=== PATIENT | female | born 1990 | race Caucasian/White ===

== ENCOUNTER 2021-10-25 16:57 | Emergency (ER) | payer OTHER, MEDICAID, SELFPAY ==
[2021-10-25 16:58] VITALS: BP 127/80; PULSE 88; RESP 16; TEMP 36.4; O2SAT 100; BMI 23.9
--- NOTE | 2021-10-25 17:18 | EX.ED.VIS.HA ---
HPI History of Present Illness Chief Complaint: Headache Informant: patient Onset/Context/Timing Onset: Weeks Context: Gradual Current Severity: Severe Maximum Severity: Severe Narrative Narrative: Patient present secondary to headache. She states headache has been ongoing for the past 3 weeks but has worsened recently. She rates her pain as a 10 out of 10. She does report some nausea today. She states the headache seems to be located around the left evangelical area. She denies recent head injury. No URI symptoms. Patient does report a history of a head bleed. She states that when she was in high school she had multiple severe headaches and would have brief syncopal episodes. After multiple head scans and different imaging modality studies she states they were able to see a small area of bleed on an angiography study in [place]. She was transferred to [place]. She never had surgery or coiling. She states the doctor there does put her on some medication which seem to help her headaches. [facility] Medical History (Updated 10/25/21 @ 19:[address] Blanca Alejandre MD) Brain bleed Home Medications mecobalamin (vitamin B12) 1,000 mcg SUBLINGUAL DAILY 04/28/16 [History Last Taken Unknown] diphenhydramine HCl 50 mg PO Q6H PRN #10 cap 10/25/21 [Rx Last Taken Unknown] ketorolac 10 mg PO Q6H PRN 3 Days #10 tab 10/25/21 [Rx Last Taken Unknown] metoclopramide HCl [Reglan] 10 mg PO Q6H PRN #10 tab 10/25/21 [Rx Last Taken Unknown] Allergy/AdvReac Type Severity Reaction Status Date / Time Iodinated Contrast Media Allergy Shortness Verified 10/25/21 16:59 [CONTRASTS] of breath Surgical History H/O inguinal hernia repair Social History Smoking Status: Current every day smoker tobacco type: cigarettes ROS ROS ED Constitutional Constitutional ED: Denies chills or fever(s) Eyes Eyes: Denies change in vision ENT ENT ED: Denies sore throat Cardiovascular Cardiovascular: Denies chest pain Respiratory/Chest Respiratory/Chest: Denies cough or dyspnea Gastrointestinal Gastrointestinal: Reports nausea and vomiting; Denies abdominal pain or diarrhea Genitourinary Genitourinary ED: Denies dysuria Musculoskeletal Musculoskeletal: Denies back pain Integumentary Denies rash Neurologic Neurologic: Reports headache(s); Denies weakness Psychiatric Psychiatric: Reports anxiety; Denies depression Allergic/Immunologic Allergic/Immunologic ED: Denies urticaria EXAM Physical Exam Const Vital Signs: 10/25/21 16:58 10/25/21 19:21 Temperature 97.6 F L Temperature Source Temporal Pulse Rate 88 Respiratory Rate 16 16 Blood Pressure 127/80 H Blood Pressure Mean 95 Pulse Ox 100 Oxygen Delivery Method Room Air Positive well nourished and well developed General Appearance ED: well developed HEENT Reports moist mucous membranes Eyes PERRL and EOMs intact bilaterally Neck supple and no meningeal signs Resp normal respiratory effort and clear to auscultation bilaterally Cardio regular rate and regular rhythm GI non-tender Palpation: soft Extremity normal to inspection Neuro oriented x3 and no sensory deficits noted Sensorium / Orientation: awake and alert Motor Exam: strength 5/5 throughout Psych mental status grossly normal Skin Lesions: no lesions Rashes: no rashes MDM MDM MDM Narrative Medical decision making narrative: Patient was given Toradol, Reglan, Benadryl, IV fluids. She was given Solu-Medrol as pretreatment for IV contrast allergy. Radiography Diagnostic Testing: Clinical Impression(s) from Imaging Studies Head CTA 10/25/21 17:32 IMPRESSION: Normal unenhanced and enhanced CT scan of the brain. Electronically Signed: Dylan De La Fuente MD at 19:24 EDT , Treatment and Re-Evaluation Narrative: Repeat evaluation headache is improving. CTA of the head is unremarkable. Test results discussed with the patient. I will write her prescription of Toradol, Reglan, Benadryl that she can use at home if needed. I will also refer her to Dr. Cardoso to establish a neurologist locally for repeat exam and further testing if needed. Return instructions are provided. Discharge Plan Triage Chief Complaint: Headache ED Provider: Blanca Alejandre Dx/Rx/DC Orders Clinical Impression: Headache Instructions: ED Headache Unspecified Prescriptions: New ketorolac 10 mg tablet 10 mg PO Q6H PRN (Reason: pain) 3 Days Qty: 10 RF: 0 metoclopramide HCl [Reglan] 10 mg tablet 10 mg PO Q6H PRN (Reason: headache) Qty: 10 RF: 0 diphenhydramine HCl 50 mg capsule 50 mg PO Q6H PRN (Reason: headache) Qty: 10 RF: 0 No Action mecobalamin (vitamin B12) 1,000 MCG tablet,disintegrating 1,000 mcg sublingual DAILY RF: 0 Primary Care Provider: Care Physician,No Primary Referrals: Rajesh Cardoso MD [STAFF PHYSICIAN] - As soon as possible Care Physician,No Primary [Primary Care Provider] - Disposition Disposition: Home, Self Care
[2021-10-25] MEDS: 0.9% Normal Saline 1,000 ML 1000 ML IV (17:23)
[2021-10-25] MEDS: Metoclopramide 10 MG/2 ML Vial IV (17:24)
[2021-10-25] MEDS: DiphenhydrAMINE 50 MG/ML Syringe 25 MG IV (17:24)
[2021-10-25] MEDS: MethylPREDNISolone 125 MG/2 ML Vial 60 MG IV (17:24)
[2021-10-25] MEDS: Ketorolac 30 MG/ML Syringe IV (17:24)
--- NOTE | 2021-10-25 17:32 | CT_ITS ---
STUDY: CT BRAIN WITH AND WITHOUT CONTRAST REASON FOR EXAM: Female, 30 years old. headache -- premedicated at 17:30 RADIATION DOSAGE (If Supplied By Facility): CTDIvol = ( 24.73 ) mGy, DLP = ( 1240.45 ) mGycm TECHNIQUE: Transaxial CT imaging of the brain was performed pre and post contrast administration. The examination was performed with intravenous administration of IV 75mL Isovue-370. Individualized dose optimization techniques were used for this CT. COMPARISON: 04/29/2016 FINDINGS: Normal soft tissue structures. Normal calvarium. Normal size ventricles and extra-axial spaces for the patient''s age. Normal white matter tracts of the cerebral hemispheres. Normal basal ganglia and thalami. Normal brainstem. Normal cerebellum. There is no intracranial hemorrhage. There are no findings of an acute ischemic infarction. Normal visualized paranasal sinuses. CT/CTA Head W/WO Contrast IMPRESSION: Normal unenhanced and enhanced CT scan of the brain. Electronically Signed: Dylan De La Fuente MD at 19:24 EDT ,
[2021-10-25 19:21] VITALS: RESP 16
== END 2021-10-25 19:47 | disposition home or self-care (01) ==
PROVIDERS: Emergency Provider Emergency Medicine; Visit Provider Emergency Medicine
DX: R51.9 Headache, unspecified (principal); F17.210 Nicotine dependence, cigarettes, uncomplicated
CPT/HCPCS: 70496; 96361; 96374; 96375; 99283; J7030; Q9967

== ENCOUNTER → 2022-03-24 | Outpatient (CLI) | payer OTHER, MEDICAID, SELFPAY ==
[2022-03-24 11:53] LABS: HIV - WCH Non-Reactive (Nonreactive); Hepatitis B Surface Antibody Reactive; Syphilis Antibodies Non-reactive
[2022-03-25 05:07] LABS: HEPATITIS B SURFACE AG Negative (Negative); Hep C Antibodies <0.1 s/co ratio (0.0-0.9); Hepatitis A IgM Antibody Negative (Negative); Hepatitis B Core AB IgM Negative (Negative)
[2022-03-25 22:07] LABS: Chlamydia By Nucleic Acid AMP Negative (Negative)
[2022-03-26 15:58] LABS: Hepatitis A AB, Total Negative (Negative)
[2022-03-26 15:58] LABS: Gonococcus By Nucleic Acid AMP Negative (Negative)
== END | disposition home or self-care (01) ==
LOC: WOBLAB 10:30
PROVIDERS: Visit Provider Student in an Organized Health Care Education/Training Program
DX: Z11.3 Encounter for screening for infections with a predominantly sexual mode of transmission (principal)
CPT/HCPCS: 36415; 80074; 86703; 86706; 86708; 86780; 87491; 87591

== ENCOUNTER 2023-02-13 19:45 | Emergency (ER) | payer BC, MEDICAID, SELFPAY ==
[2023-02-13 19:46] VITALS: BP 123/88; PULSE 80; RESP 16; TEMP 36.7; O2SAT 98; BMI 23.3
--- NOTE | 2023-02-13 20:01 | EDS_ITS ---
HPI History of Present Illness Chief Complaint: Lower Extremity Injury Narrative Narrative: Stepped on a metal object which got embedded in her foot. It did not go through her shoe. Her boyfriend pulled it out. No other injuries. Tetanus is not up-to-date. [facility] Medical History (Updated 02/13/23 @ 20:[address] Jose Francisco Mccall MD) Brain bleed Home Medications mecobalamin (vitamin B12) 1,000 mcg disintegrating tablet,sublingual 1,000 mcg sublingual DAILY 04/28/16 [History Last Taken Unknown] diphenhydramine HCl 50 mg capsule 50 mg PO Q6H PRN headache #10 caps 10/25/21 [Rx Last Taken Unknown] ketorolac 10 mg tablet 10 mg PO Q6H PRN pain 3 days #10 tabs 10/25/21 [Rx Last Taken Unknown] metoclopramide HCl 10 mg tablet (Reglan) 10 mg PO Q6H PRN headache #10 tabs 10/25/21 [Rx Last Taken Unknown] ondansetron HCl 8 mg tablet 8 mg PO Q12H PRN nausea and vomiting #10 tabs 05/26/22 [Rx Last Taken Unknown] Allergy/AdvReac Type Severity Reaction Status Date / Time Iodinated Contrast Media Allergy Shortness Verified 02/13/23 19:49 [CONTRASTS] of breath Latex, Natural Rubber Allergy Rash Verified 02/13/23 19:49 Surgical History H/O inguinal hernia repair Social History Smoking Status: Current some day smoker tobacco type: cigarettes ROS ROS ED ROS Narrative Past medical history: none Medications: Reviewed Social history: Noncontributory Review of systems: Musculoskeletal: As in HPI Skin: Puncture wound dorsum of the foot Neurological: No weakness or paresthesias Hematologic: No easy bleeding or easy bruising EXAM Physical Exam Narrative Exam Narrative: Physical exam General: Patient does not appear in significant distress . Head: Normocephalic, Atraumatic Neck: No C-spine tenderness Cardiovascular: Normal distal pulses Back: Nontender, Normal Inspection. Extremities: There is a puncture wound dorsum of the foot, no obvious bony de formities. Skin: As above Neurological: Normal strength and sensation Const Vital Signs: 02/13/23 19:46 Temperature 98.1 F Temperature Source Temporal Pulse Rate 80 Respiratory Rate 16 Blood Pressure 123/88 H Blood Pressure Mean 99 Pulse Ox 98 Oxygen Delivery Method Room Air MDM MDM MDM Narrative Medical decision making narrative: Patient has a gradual onset of chronic recurrent cephalgia. There is no neurological signs and this is gradual onset therefore I am not worried about subarachnoid hemorrhage, I am not worried about any mass, I am not worried about meningitis. I do not believe a CT or CTA is needed I do believe an LP is needed. I do not believe blood work is needed she is given a migraine cocktail after which I reevaluated admission significantly improved and wants to be discharged. I will discharge her in the care of her . Discharge Plan Triage Chief Complaint: Lower Extremity Injury Other Complaint: Foreign Body ED Provider: Jose Francisco Mccall Dx/Rx/DC Orders Clinical Impression: Headache Instructions: Understanding Headache Pain Prescriptions: No Action ondansetron HCl 8 mg tablet 8 mg PO Q12H PRN (Reason: nausea and vomiting) Qty: 10 0RF mecobalamin (vitamin B12) 1,000 MCG tablet,disintegrating 1,000 mcg sublingual DAILY ketorolac 10 mg tablet 10 mg PO Q6H PRN (Reason: pain) 3 Days Qty: 10 0RF metoclopramide HCl [Reglan] 10 mg tablet 10 mg PO Q6H PRN (Reason: headache) Qty: 10 0RF diphenhydramine HCl 50 mg capsule 50 mg PO Q6H PRN (Reason: headache) Qty: 10 0RF Primary Care Provider: ANTONIO RIOS Referrals: [facility] Doctor,Out of [Non-Staff] - Disposition Disposition: Home, Self Care
[2023-02-13] MEDS: Oxycodone/Apap 5/325 Tablet PO (20:10)
[2023-02-13] MEDS: Diphth,Pertuss(Acell),Tet Vac 0.5 ML Vial IM (20:11)
[2023-02-13] MEDS: Cefazolin 1 GM/5 ML Vial IM (20:36)
--- NOTE | 2023-02-13 20:42 | RAD_ITS ---
INDICATION: trauma EXAMINATION/TECHNIQUE: X-RAY - RIGHT XR Foot Min 3 Views COMPARISON: None. FINDINGS: 3 views of the right foot. BONES: Normal anatomic alignment without evidence of fracture or subluxation. No concerning bony lesion or abnormal sclerosis to suggest lesion. Type II os naviculare. JOINTS: No significant degenerative change. SOFT TISSUES: Punctate 1 mm opacity overlying the medial base of the right little toe. Soft tissue swelling of the forefoot dorsum. RAD/Foot min 3 Views IMPRESSION: Punctate 1 mm opacity overlying the medial base of the right little toe, which may represent overlying artifact versus retained foreign body. Correlate with physical examination. No acute osseous abnormality of the right foot. Type II os naviculare. Electronically Signed: Hoang John MD at 22:06 EDT ,
== END 2023-02-13 21:44 | disposition home or self-care (01) ==
PROVIDERS: Emergency Provider Emergency Medicine; Visit Provider Emergency Medicine
DX: R51.9 Headache, unspecified (principal); F17.210 Nicotine dependence, cigarettes, uncomplicated
CPT/HCPCS: 73630; 90715; 96372; 99282

== ENCOUNTER 2023-08-25 22:33 | Emergency (ER) | payer BC, MEDICAID, SELFPAY ==
[2023-08-25 22:34] VITALS: BP 144/99; PULSE 91; RESP 16; TEMP 36.2; O2SAT 100; BMI 26.8
[2023-08-26] MEDS: Ketorolac 30 MG/ML Syringe IV (00:06)
[2023-08-26] MEDS: Orphenadrine 60 MG/2 ML Ampul IV (00:06)
[2023-08-26] MEDS: 0.9% Normal Saline (1000mL) 1,000 ML 999 ML IV (00:07)
[2023-08-26 00:26] LABS: Anion Gap 6 (5-15); BUN 9 mg/dL (7-18); BUN/Creat Ratio 11.2 RATIO (10-20); Calcium,Total 8.7 mg/dL (8.5-10.1); Chloride 107 mmol/L (98-107); EST Glomerular Filtration Rate 86 mL/min (>60); Est Glom Filt Rate - Afr Amer 104 mL/min (>60); Estimated Creatinine Clearance 92.18 ml/min; Glucose 104 mg/dL (74-106); Magnesium 2.2 mg/dL (1.6-2.6); Sodium Level 139 mmol/L (136-145)
[2023-08-26 00:31] LABS: Absolute Lymphocyte Count 2.07 X10^3/uL (0.83-4.51); Absolute Neutrophil Count 10.3 X10^3/uL (2.0-7.7); Basophil# 0.06 X10^3/uL; Basophil% 0.4 % (0-1); Eosinophil# 0.21 X10^3/uL; Eosinophils% 1.6 % (0-5); Hematocrit 42.4 % (37-47); Hemoglobin 14.7 g/dL (12.0-15.0); Lymphocyte # 2.07 X10^3/ul (0.83-4.51); Lymphocyte % 15.3 % (19-41); Mean Corp Hgb Conc 34.7 g/dL (32-36); Mean Corpuscular Hgb 29.9 pg (27.0-32.0); Mean Corpuscular Volume 86.2 fL (81-99); Mean Platelet Vol. 10.3 fl (6.2-12.0); Monocyte# 0.75 X10^3/uL; Monocyte% 5.5 % (0-10); NRBC Flagged by Analyzer 0 % (0-5); Neutrophil # 10.29 X10^3/uL (2.7-7.7); Neutrophil % 76.1 % (47-70); Platelet Count 160 K/mm3 (150-450); RBC Distribution Width SD 43.3 fl (35.1-43.9); Red Blood Count 4.92 M/mm3 (4.2-5.4); White Blood Count 13.5 K/mm3 (4.4-11.0)
[2023-08-26 00:38] VITALS: BP 139/74; PULSE 88; RESP 16; O2SAT 97
--- NOTE | 2023-08-26 01:24 | EDS_ITS ---
HPI History of Present Illness Chief Complaint: General Illness Informant: patient and friend Narrative Narrative: Patient is a 32-year-old female with past medical history of remote brain bleed. She states that she was sick with congestion and drainage and fatigue for approximately 1 to 2 weeks and then was also exposed to influenza B at work and then developed bouts of fever associated with increased fatigue nausea vomiting and diarrhea. She states she has she had a call off work this evening secondary to her symptoms and therefore she comes to the hospital for evaluation [facility] Medical History (Updated 08/26/23 @ 01:[address] Etienne Kaiser, DO) Brain bleed Home Medications mecobalamin (vitamin B12) 1,000 mcg disintegrating tablet,sublingual 1,000 mcg sublingual DAILY 04/28/16 [History Last Taken Unknown] diphenhydramine HCl 50 mg capsule 50 mg PO Q6H PRN headache #10 caps 10/25/21 [Rx Last Taken Unknown] ketorolac 10 mg tablet 10 mg PO Q6H PRN pain 3 days #10 tabs 10/25/21 [Rx Last Taken Unknown] metoclopramide HCl 10 mg tablet (Reglan) 10 mg PO Q6H PRN headache #10 tabs 10/25/21 [Rx Last Taken Unknown] ondansetron HCl 8 mg tablet 8 mg PO Q12H PRN nausea and vomiting #10 tabs 05/26/22 [Rx Last Taken Unknown] cephalexin 500 mg capsule 500 mg PO Q6 #40 CAPSULES 02/13/23 [Rx Last Taken Unknown] hydrocodone-acetaminophen 5-325mg 5mg-325mg 1 tab PO Q4H PRN PRN Pain 3 days #10 TABLETS 02/13/23 [Rx Last Taken Unknown] Allergy/AdvReac Type Severity Reaction Status Date / Time Iodinated Contrast Media Allergy Shortness Verified 08/25/23 22:36 [CONTRASTS] of breath Latex, Natural Rubber Allergy Rash Verified 08/25/23 22:36 Surgical History H/O inguinal hernia repair Social History Smoking Status: Current some day smoker tobacco type: cigarettes ROS ROS ED Constitutional Constitutional ED: Reports chills, fever(s) and subjective ENT ENT ED: Reports rhinorrhea; Denies sore throat Cardiovascular Cardiovascular: Denies chest pain Respiratory/Chest Respiratory/Chest: Denies cough or dyspnea Gastrointestinal Gastrointestinal: Reports abdominal pain, diarrhea, nausea and vomiting Genitourinary Genitourinary ED: Denies dysuria Musculoskeletal Musculoskeletal: Reports myalgias Integumentary Denies rash Neurologic Neurologic: Reports headache(s) Hematologic/Lymphatic Hematologic/Lymphatic: Denies easy bleeding or easy bruising EXAM Physical Exam Const Vital Signs: 08/25/23 22:34 Temperature 97.2 F L Temperature Source Temporal Pulse Rate 91 Respiratory Rate 16 Blood Pressure 144/99 H Blood Pressure Mean 114 Pulse Ox 100 Oxygen Delivery Method Room Air Positive well nourished and well developed General Appearance ED: well developed; Negative for pallor HEENT HEENT Narrative: Mucous membranes are slightly dry and tacky No tongue or lip swelling no oral lesions no airway edema or compromise No secondary changes in the posterior pharynx to suggest infection Eyes PERRL and EOMs intact bilaterally General Eye ED: Negative for scleral icterus Neck supple Neck Narrative: No nuchal rigidity or meningeal signs Resp normal respiratory effort and clear to auscultation bilaterally Resp Narrative: No nasal flaring retractions tachypnea or accessory muscle use Cardio regular rate and regular rhythm Rate: other Other Details: Heart is regular rate and rhythm without murmurs rubs or gallop Radial and carotid pulses are equal and symmetric GI non-distended GI Narrative: Abdomen is soft and nondistended with normal active bowel sounds. There is mild pain on palpation in the left lower quadrant without voluntary guarding or rigidity or pulsatile mass Auscultation: normoactive bowel sounds Palpation: soft Back/Spine no CVA tenderness Extremity normal to inspection Extremity Narrative: No asymmetric edema no pitting edema negative Homans' sign bilaterally Neuro oriented x3, CN's II-XII intact bilaterally and no sensory deficits noted Sensorium / Orientation: alert Motor Exam: strength 5/5 throughout Psych mental status grossly normal Skin no rashes or lesions noted and no wounds Skin Narrative: Skin turgor is slightly increased General Skin Exam: Negative for jaundice or pallor MDM MDM MDM Narrative Medical decision making narrative: Patient arrived to the ER slightly hypertensive otherwise with stable vital. Constellation of symptoms is most consistent with recurrent viral infection such as COVID versus influenza versus RSV. Her physical exam shows changes concerning for dehydration as well which could potentially cause acute kidney injury or severe electrolyte abnormality. Therefore basic labs and a viral swab were obtained. Labs showed normal kidney function and no clinically significant derangement to her electrolytes. Patient's white count is elevated at 13.5 which could correlate to inflammatory process from viral infection. As she does have pain in the lower abdomen even though it is minimal in nature we discussed CT scan to check for potential pathology such as colitis versus diverticulitis versus kidney stone. Patient states she feels better after hydration and does not want any imaging obtained. Therefore at this time patimaryellen nt's labs show no signs of LINDA or severe electrolyte abnormality her viral swab is negative and vital signs are stable. Therefore despite the bump to her white count she does not want any type of imaging to further assess potential cause of her symptoms and as her abdomen is soft and nonsurgical the white count is most likely inflammatory and viral in nature. Patient will be discharged home at this time as she does not want any further workup and advised to return to symptoms fail to improve or worsen History & Record Review Discussion w/independent historian: Patient and Friend Lab Data Labs: Laboratory Results - last 24 hr 08/25/23 23:58 WBC 13.5 H RBC 4.92 Hgb 14.7 Hct 42.4 MCV 86.2 MCH 29.9 MCHC 34.7 RDW Std Deviation 43.3 RDW Coeff of Artur 14.0 Plt Count 160 MPV 10.3 Immature Gran % (Auto) 1.100 H Neut % (Auto) 76.1 H Lymph % (Auto) 15.3 L Hunt % (Auto) 5.5 Eos % (Auto) 1.6 Baso % (Auto) 0.4 Absolute Neuts (auto) 10.3 H Absolute Lymphs (auto) 2.07 Nucleated RBC % 0 Sodium 139 Potassium 4.0 Chloride 107 Carbon Dioxide 26.0 Anion Gap 6 BUN 9 Creatinine 0.80 Estim Creat Clear Calc 92.18 Est GFR (MDRD) Af Amer 104 Est GFR (MDRD) Non-Af 86 BUN/Creatinine Ratio 11.2 Glucose 104 Calcium 8.7 Magnesium 2.2 Discharge Plan Triage Chief Complaint: General Illness ED Provider: Etienne Kaiser Dx/Rx/DC Orders Clinical Impression: Viral syndrome, Mild dehydration Instructions: ED Viral Syndrome (Adult) Prescriptions: No Action ondansetron HCl 8 mg tablet 8 mg PO Q12H PRN (Reason: nausea and vomiting) Qty: 10 0RF mecobalamin (vitamin B12) 1,000 MCG tablet,disintegrating 1,000 mcg sublingual DAILY ketorolac 10 mg tablet 10 mg PO Q6H PRN (Reason: pain) 3 Days Qty: 10 0RF metoclopramide HCl [Reglan] 10 mg tablet 10 mg PO Q6H PRN (Reason: headache) Qty: 10 0RF diphenhydramine HCl 50 mg capsule 50 mg PO Q6H PRN (Reason: headache) Qty: 10 0RF hydrocodone-acetaminophen 5-325 mg tablet 1 tab PO Q4H PRN PRN (Reason: Pain) 3 Days Qty: 10 0RF cephalexin 500 mg capsule 500 mg PO Q6 Qty: 40 0RF Stand Alone Forms: ED Work / School Excuse Primary Care Provider: Care Physician,No Primary Referrals: Jose Francisco Hawthorne MD [Med Staff - Active Staff] - Care Physician,No Primary [Primary Care Provider] - Activity Restrictions/Additional Instructions: Please keep yourself well-hydrated and take 600 mg / 3 pills of [id number] ibuprofen 2-3 times a day for the next 3 to 5 days to help control muscle aches. Return to the ER should you have any further concerns or worsening of symptoms Disposition Disposition: Home, Self Care
[2023-08-26 01:31] VITALS: BP 134/75; PULSE 82; RESP 16; TEMP 36.6; O2SAT 99
== END 2023-08-26 01:33 | disposition home or self-care (01) ==
PROVIDERS: Emergency Provider Emergency Medicine; Visit Provider Emergency Medicine
DX: B34.9 Viral infection, unspecified (principal); E86.0 Dehydration; F17.210 Nicotine dependence, cigarettes, uncomplicated
CPT/HCPCS: 80048; 83735; 85025; 87631; 96374; 96375; 99283; J7030; A4216

== ENCOUNTER 2024-03-10 00:49 | Emergency (ER) | payer BC, SELFPAY ==
[2024-03-10 00:51] VITALS: BP 133/99; PULSE 111; RESP 16; TEMP 36.4; O2SAT 98; BMI 26.1
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
--- NOTE | 2024-03-10 01:26 | ED.RN ---
PER DR. KABA NO SITTER NEEDED
[2024-03-10 01:51] VITALS: PULSE 105; RESP 17; O2SAT 99
[2024-03-10 01:58] LABS: Absolute Lymphocyte Count 1.32 X10^3/uL (0.83-4.51); Absolute Neutrophil Count 4.3 X10^3/uL (2.0-7.7); Basophil# 0.06 X10^3/uL; Eosinophil# 0.03 X10^3/uL; Eosinophils% 0.5 % (0-5); Hematocrit 42.6 % (37-47); Lymphocyte # 1.32 X10^3/ul (0.83-4.51); Lymphocyte % 21.6 % (19-41); Mean Corp Hgb Conc 32.9 g/dL (32-36); Mean Corpuscular Hgb 28.9 pg (27.0-32.0); Mean Platelet Vol. 9.8 fl (6.2-12.0); Monocyte# 0.42 X10^3/uL; Monocyte% 6.9 % (0-10); NRBC Flagged by Analyzer 0 % (0-5); Neutrophil # 4.26 X10^3/uL (2.7-7.7); Neutrophil % 69.8 % (47-70); Platelet Count 150 K/mm3 (150-450); Red Blood Count 4.84 M/mm3 (4.2-5.4); White Blood Count 6.1 K/mm3 (4.4-11.0)
[2024-03-10 02:00] VITALS: PULSE 105; RESP 16; O2SAT 99
[2024-03-10 02:09] LABS: Internal QC Validated? YES +Cl - CLEAR BKGD; Pregnancy, Serum, hCG Quali. NEGATIVE Negative
[2024-03-10 02:13] LABS: Anion Gap 6 (5-15); BUN 13 mg/dL (7-18); BUN/Creat Ratio 14.6 RATIO (10-20); Calcium,Total 9.4 mg/dL (8.5-10.1); Chloride 112 mmol/L (98-107); Creatinine, Serum 0.89 mg/dL (0.55-1.02); EST Glomerular Filtration Rate 77 mL/min (>60); Est Glom Filt Rate - Afr Amer 93 mL/min (>60); Estimated Creatinine Clearance 81.06 ml/min; Glucose 101 mg/dL (74-106); Potassium 4.1 mmol/L (3.5-5.1); Sodium Level 142 mmol/L (136-145)
[2024-03-10 02:16] LABS: Amphetamine Urine VISTA NEGATIVE (<1000 ng/mL); Barbiturate Urine VISTA NEGATIVE (< 200 ng/mL); Benzodiazepine Urine VISTA NEGATIVE (< 200 ng/mL); Cocaine Urine VISTA NEGATIVE (< 300 ng/mL); Ecstacy Urine VISTA NEGATIVE (< 500 ng/mL); Methadone Urine VISTA NEGATIVE (< 300 ng/mL); PCP Urine VISTA NEGATIVE (< 25 ng/mL); THC Urine VISTA NEGATIVE (< 50 ng/mL); Vista UDS pH Range 5
--- NOTE | 2024-03-10 06:00 | ED.RN ---
Pt is found wandering in hallways in triage while staff were in with another patient. This nurse escorts pt back to room. Pt states she got lost. Per security pt's boyfriend was outside and pt appeared to be looking out the doors. This nurse removed pts shoes, keys and wallet from room that boyfriend had brought in after belongings and rules were already explained to pt. Pt then asks for work note from Dr. Palencia. This nurse explained work note would not be given until it is determined if pt was getting placed or if she would be going home. Pt states she cannot be placed because those places are horrible and I don't belong there. Explained process again to pt, that she would be seen by social work after she is at a legal limit for ETOH and then it would be determined if she was to be placed. Boyfriend states you are upsetting her, can we talk about this later. This nurse responded yes we can, I am just trying to set expectations so everyone is all on the same page. Pt asks for this nurse's name, name given.
[2024-03-10 10:56] VITALS: BP 117/86; PULSE 90; RESP 16; TEMP 36.3; O2SAT 97
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
[2024-03-10 18:00] VITALS: BP 129/87; PULSE 90; RESP 18; O2SAT 96
--- NOTE | 2024-03-10 18:40 | CM.ED ---
Social work Referrals faxed to both [facility] (fax: [phone]) and [facility] (fax: [phone]). Shae Peters REJECT OPENER, THERMOFORMING OPERATOR
--- NOTE | 2024-03-10 18:55 | CM.ED ---
Social work Patient has been accepted at [facility]. SW spoke with Gerri at [facility] ( ). Call report to [facility] unit ([phone]). The attending physician is Dr. Vásquez. Updated nursing. Updated physician to acceptance. The completed pink slip was also faxed to [facility], at their request. Verified visiting hours and that patient could bring her own clothes. Updated family as well. Shae Peters, HEEL SLICKER, BLUE PRINT CONTROL CLERK
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
--- NOTE | 2024-03-10 20:32 | ED.RN ---
Pt mother to nurse's station asking for pillow. Reviewed safety policies with mother. Informed mother that these precautions have also been reviewed with her daughter several times this morning by myself and throughout the day. Mother states she was unaware. Mother states she is my daughter and I just want her taken care of. Validated feelings with mother, and reminded that policies are in place for patient and staff safety. Mother then returns to room.
--- NOTE | 2024-03-10 21:47 | ED.RN ---
The patients mother pulled this RN aside and requested that Pinky Barry RN not be back in the room due to her being disrespectful to my daughter this morning. This RN stated she is my charge nurse so she has authority to know information but I will request it for you. Earlier tonight the mother requested that the patient have scrubs and a bra. The patient stated Dr Brumfield said I could have my bra and scrubs and so did the clinical social work therapist. This RN stated you are under suicidal precautions, you cannot have a bra but Dr Brumfield stated you can have scrubs and my sound truck operator Xiomara stated scrubs are fine as well. This RN provided paper scrubs. The pt did not put scrubs on yet. The patient also stated she did not want men in the room and this RN stated We will try our best to handle that however we do have male staff on [facility] and we will try to handle that appropriately. The patients s/o brought in clothes and this RN went to remove the items from the room and the pt stated I was told I can keep these items. This RN stated you can bring them to the facility with you but they cannot stay in this room. The pt stated The clinical social work therapist told me I can keep them. This RN explained how it is not safe for the patient to have items with drawstrings or other items like hairspray that can be ingested. The pt was agreeable and the s/o did remove drawstrings so she can have the item at the facility. This RN also wrote down phone numbers for the patient and placed them in her bag (with pt permission) so she can have numbers when she goes to the psych facility.
[2024-03-11 02:00] VITALS: BP 113/78; PULSE 65; RESP 18; TEMP 36.8; O2SAT 98
--- NOTE | 2024-03-11 03:03 | ED.RN ---
The pt requested our Dr write her a note for work. She has been told by Dr Palencia last night and Dr Ladi astorga that she will get a note when she is at her psych facility.
[2024-03-11 03:19] VITALS: BP 113/78; PULSE 65; RESP 18; TEMP 36.8; O2SAT 98
--- NOTE | 2024-03-11 03:20 | ED.RN ---
This RN called report to the facility.
== END 2024-03-11 07:30 ==
PROVIDERS: Emergency Provider Emergency Medicine; Visit Provider Emergency Medicine
DX: R45.851 Suicidal ideations (principal); F10.129 Alcohol abuse with intoxication, unspecified; F32.A Depression, unspecified; Z87.891 Personal history of nicotine dependence
CPT/HCPCS: 80048; 80307; 82077; 84703; 85025; 99285; A4216

== ENCOUNTER → 2024-11-29 | Outpatient (CLI) | payer OTHER, SELFPAY ==
--- NOTE | 2024-11-29 15:34 | US_ITS ---
PROCEDURE: TRANSVAGINAL NON- 11/29/2024 REASON FOR EXAM: PELVIC AND PERINEAL PAIN TECHNIQUE: TRANSVAGINAL NON- COMPARISON: None FINDINGS: LMP: November 07, 2024. Measurements: Uterus: 9.6 cm x 5.6 cm x 4.3 with a volume of 122.08 mL Endometrial Thickness: 10.2 mm. It is hyperechoic. Right Ovary: 2.8 cm x 2.4 cm x 1.7 cm with a volume of 5.82 mL. Left Ovary: 4.1 cm x 2.2 cm x 2.1 cm with a volume of 9.73 mL. Uterus: Normal size, myometrial echotexture, and contour. Endometrium: Measures 10.2 mm. It is hyperechoic. Right ovary: Normal size and echotexture. Left ovary: There is a 2.9 cm 1.8 cm 1.5 cm complex cyst in the left ovary. Follow-up recommended. Other: No large pelvic mass identified. US/Transvaginal Non- IMPRESSION: 2.9 cm 1.8 cm 1.5 cm complex cyst in the left ovary. Reading Location: [place] [address]
== END | disposition home or self-care (01) ==
LOC: US 15:32
PROVIDERS: PCP Family Medicine; Referring Provider Nurse Practitioner Family; Visit Provider Nurse Practitioner Family
DX: R10.2 Pelvic and perineal pain (principal)
CPT/HCPCS: 76830

== ENCOUNTER → 2024-12-01 | Outpatient (CLI) | payer OTHER, SELFPAY ==
--- NOTE | 2024-12-01 15:33 | RAD_ITS ---
PROCEDURE: ACUTE ABDOMEN INC CHEST 12/01/2024 REASON FOR EXAM: ABD PAIN, EVAL CONSTIPATION TECHNIQUE: ACUTE ABDOMEN INC CHEST COMPARISON: None. FINDINGS: Lungs/Pleura: Clear. Heart/Mediastinum: Normal in size. Bones/Soft tissues: Unremarkable. Abdomen: Nonobstructive gas pattern. No free air. Moderate burden of stool within the colon particularly within the rectal vault which may reflect constipation. RAD/Acute Abdomen Inc Chest IMPRESSION: Moderate stool in the colon may reflect constipation. Reading Location: [id number]
[2024-12-01 17:52] LABS: Hematocrit 36.5 % (37-47); Hemoglobin 12.3 g/dL (12.0-15.0); Immature Granulocytes Count 0.010 X10^3/uL (0.0-0.0); Mean Corp Hgb Conc 33.7 g/dL (32-36); Mean Corpuscular Volume 90.1 fL (81-99); Mean Platelet Vol. 10.1 fl (6.2-12.0); NRBC Flagged by Analyzer 0 % (0-5); Platelet Count 133 K/mm3 (150-450); RBC Distribution Width CV 12.8 % (11.6-14.6); RBC Distribution Width SD 42.3 fl (35.1-43.9); Red Blood Count 4.05 M/mm3 (4.2-5.4); White Blood Count 4.8 K/mm3 (4.4-11.0)
[2024-12-01 18:05] LABS: AST(SGOT) 16 U/L (<=31); Alanine Aminotransfer ALT/SGPT 8 U/L (<=34); Albumin, Serum 4.4 g/dL (3.5-5.0); Alkaline Phosphatase 41 U/L (35-104); Anion Gap 11 (5-15); BUN 12 mg/dL (4-19); BUN/Creat Ratio 14.1 RATIO (10-20); Calcium,Total 9.2 mg/dL (7.6-11.0); Carbon Dioxide 22.8 mmol/L (21.0-32.0); Chloride 102 mmol/L (98-108); Globulin 2.7 g/dL (2.2-4.2); Glucose 94 mg/dL (70-99); Lipase 20 U/L (13-75); Potassium 3.6 mmol/L (3.3-5.1)
[2024-12-06 11:08] LABS: Egg, Whole <0.10 kU/L (Class 0); Mussels <0.10 kU/L (Class 0)
== END | disposition home or self-care (01) ==
LOC: MTLAB 15:28
PROVIDERS: PCP Family Medicine; Referring Provider Family Medicine; Visit Provider Family Medicine
DX: Z91.018 Allergy to other foods (principal); R10.9 Unspecified abdominal pain
CPT/HCPCS: 36415; 74022; 80053; 83690; 85025; 86003; 86005

== ENCOUNTER → 2024-12-06 | Outpatient (CLI) | payer OTHER, SELFPAY ==
--- NOTE | 2024-12-06 07:40 | US_ITS ---
PROCEDURE: ABDOMEN LIMITED N/A REASON FOR EXAM: PAIN, HISTORY OF ETOH COMPARISON: None FINDINGS: Liver: Grossly normal size and echotexture. Liver measures 14.3 cm. Gallbladder: No stones, sludge, wall thickening or tenderness. Common bile duct: Normal measuring 6 mm . Pancreas: Normal Other: Visualized portions of the right kidney are unremarkable. No right upper quadrant ascites. US/Abdomen Limited IMPRESSION: NORMAL RIGHT UPPER QUADRANT ULTRASOUND. Reading Location: [place] [id number]
--- NOTE | 2024-12-06 07:40 | US_ITS ---
PROCEDURE: ABDOMEN LIMITED N/A REASON FOR EXAM: PAIN, HISTORY OF ETOH COMPARISON: None FINDINGS: Liver: Grossly normal size and echotexture. Liver measures 14.3 cm. Gallbladder: No stones, sludge, wall thickening or tenderness. Common bile duct: Normal measuring 6 mm . Pancreas: Normal Other: Visualized portions of the right kidney are unremarkable. No right upper quadrant ascites. US/Abdomen Limited IMPRESSION: NORMAL RIGHT UPPER QUADRANT ULTRASOUND. Reading Location: [place] [address]
== END | disposition home or self-care (01) ==
PROVIDERS: PCP Family Medicine; Referring Provider Family Medicine; Visit Provider Family Medicine
DX: R10.9 Unspecified abdominal pain (principal)
CPT/HCPCS: 76705

== ENCOUNTER 2024-12-07 11:17 | Emergency (ER) | payer OTHER, SELFPAY ==
[2024-12-07 11:18] VITALS: BP 129/90; PULSE 83; RESP 18; TEMP 36.8; O2SAT 100; BMI 24.6
[2024-12-07 11:52] LABS: Mucous, Urine 0 SEEN /hpf (<or=2+); Red Blood Cells-Urine 0 SEEN /hpf (0-5); Squamous Epithelial Cells - UA 0 SEEN /hpf (5-10)
[2024-12-07 11:55] LABS: Hematocrit 38.2 % (37-47); Hemoglobin 12.8 g/dL (12.0-15.0); Immature Granulocytes Count 0.010 X10^3/uL (0.0-0.0); Mean Corp Hgb Conc 33.5 g/dL (32-36); Mean Corpuscular Volume 89.3 fL (81-99); Mean Platelet Vol. 9.6 fl (6.2-12.0); NRBC Flagged by Analyzer 0 % (0-5); Platelet Count 119 K/mm3 (150-450); RBC Distribution Width CV 12.6 % (11.6-14.6); RBC Distribution Width SD 41.4 fl (35.1-43.9); Red Blood Count 4.28 M/mm3 (4.2-5.4); White Blood Count 4.4 K/mm3 (4.4-11.0)
[2024-12-07 11:57] LABS: Color, Urine Yellow (Yellow); Glucose, Dipstick Normal (Normal); Ketone-Dipstick Negative (Negative); Leukocyte Esterase-Dipstick Negative /ul (Negative); Nitrite-Dipstick Negative (Negative); Occult Blood-Urine Negative /ul (Negative); Protein-Dipstick Negative (Negative); Specific Gravity, Urine 1.005 (1.002-1.030); Urine Bilirubin Dipstick Negative (Negative)
[2024-12-07 12:11] LABS: Internal QC Validated? YES +Cl - CLEAR BKGD; Pregnancy, Serum, hCG Quali. NEGATIVE Negative; Record Kit Lot#, Serum Preg. 962302
[2024-12-07] MEDS: 0.9% Normal Saline (1000mL) 1,000 ML 999 ML IV (12:23)
[2024-12-07 12:30] LABS: AST(SGOT) 11 U/L (<=31); Alanine Aminotransfer ALT/SGPT 9 U/L (<=34); Albumin, Serum 4.4 g/dL (3.5-5.0); Alkaline Phosphatase 45 U/L (35-104); Anion Gap 9 (5-15); BUN 9 mg/dL (4-19); BUN/Creat Ratio 9.5 RATIO (10-20); Calcium,Total 9.3 mg/dL (7.6-11.0); Carbon Dioxide 26.5 mmol/L (21.0-32.0); Chloride 102 mmol/L (98-108); Estimated Creatinine Clearance 74.05 ml/min (50-250); Globulin 2.8 g/dL (2.2-4.2); Glucose 86 mg/dL (70-99); Lipase 19 U/L (13-75); Potassium 4.2 mmol/L (3.3-5.1)
[2024-12-07 13:17] VITALS: BP 115/76; PULSE 86; RESP 16; O2SAT 100
--- NOTE | 2024-12-07 13:19 | US_ITS ---
PROCEDURE: TRANSVAGINAL NON- N/A REASON FOR EXAM: LLQ PAIN, HX OF CYST TECHNIQUE: TRANSVAGINAL NON- COMPARISON: None FINDINGS: LMP: December 02, 2024. Measurements: Uterus: 9 cm x 5 cm x 4.4 cm with a volume of 105.21 mL Endometrial Thickness: 7.3 mm. It is trilaminar. Right Ovary: 3.6 cm x 2.6 cm x 1.7 cm with a volume of 8.01 mL. Left Ovary: 3.2 cm x 2.9 cm x 1.9 cm with a volume of 9.14 mL. Uterus: There is a 1.5 cm x 1.3 cm 1.1 cm fundal fibroid. Endometrium: Unremarkable Right ovary: Normal size and echotexture. Left ovary: Regressing follicles. Other: No large pelvic mass identified. US/Transvaginal Non- IMPRESSION: Fibroid uterus. No acute abnormality is seen. Reading Location: [place] [address]
[2024-12-07] MEDS: DiphenhydrAMINE 50 MG/ML Syringe 25 MG IV (13:38)
--- NOTE | 2024-12-07 14:35 | CT_ITS ---
PROCEDURE: ABDOMEN/PELVIS W IV CONT ONLY 12/07/2024 REASON FOR EXAM: ABD PAIN, LLQ TECHNIQUE: ABDOMEN/PELVIS W IV CONT ONLY Coronal and Sagittal reconstruction series were provided. CONTRAST: Isovue 300 VOLUME: 98 mL One or more dose reduction techniques were used (e.g., Automated exposure control, adjustment of the mA and/or kV according to patient size, use of iterative reconstruction technique. RADIATION DOSE SUMMARY: CTDlvol: 13.3 mGy DLP: 491 mGycm COMPARISON: Abdominal ultrasound 12/06/2024 FINDINGS: Lung bases: Solid nodule in the left lower lobe measuring 3 mm (series 2, image 11). Liver: Unremarkable Gallbladder: Unremarkable, without radiodense stones. Spleen: Unremarkable Pancreas: Normal size without evidence of mass surrounding inflammation or ductal dilation. Adrenals: Unremarkable Kidneys: No radiodense stone or hydronephrosis. Bladder: Unremarkable Reproductive Organs: Corpus luteum in the left ovary. Otherwise unremarkable. Bowel: No obstruction or inflammation. Visualized portions of the appendix are unremarkable. Lymph nodes: No suspicious lymph node enlargement. Vasculature: The abdominal aorta and IVC are normal. Bones: Unremarkable Soft tissues: Hernia mesh clips in the lower abdomen. No hernia identified on this exam. CT/Abdomen/Pelvis W IV Cont ONLY IMPRESSION: No acute intra-abdominal abnormality. Reading Location: [id number]
[2024-12-07 15:08] VITALS: BP 115/76; PULSE 69; RESP 18; O2SAT 100
--- NOTE | 2024-12-07 16:09 | EX.ED.DYSGE1 ---
HPI History of Present Illness Chief Complaint: Abd Pain Narrative Narrative: Patient is a 34-year-old female with a past medical history of brain bleed, hernia who presents to the emergency department chief complaint of abdominal pain. Patient states that she has had abdominal pain for several weeks now and states that she is seen multiple providers. She states that her symptoms started again approximately 2 weeks ago and she states that if she attempts to eat anything she becomes very bloated and has pain immediately. She states that she is only really been eating applesauce and substances of this nature. She states that she originally followed up with her primary care physician who ordered a x-ray of her abdomen which was normal. States that she then followed up with her [facility] as she had a history of a cyst that needed removed in the past and they did a transvaginal ultrasound and they noted that there was a cyst on the left ovary and she states that she is scheduled to have a repeat ultrasound next week. States that about 2 days ago she had an ultrasound of her abdomen including her gallbladder that she was told was normal as well. She states that she is having lower abdominal pain associated with this. Patient states that she has not had a CT abdomen pelvis. States that she did have a hernia repair on the right side as well. Patient denies any sick contacts. She states that she is passing gas and having bowel movements. Patient states that she was tested for STIs as well and that was normal. [facility] Medical History Hernia Brain bleed Home Medications ?Medication ?Instructions ?Recorded ?Last Taken ?Type hydroxyzine HCl 10 mg tablet 10 mg PO QHS 09/03/23 Unknown History ondansetron HCl 8 mg tablet 8 mg PO Q8H PRN nausea and 09/03/23 Unknown Rx vomiting #14 tabs dicyclomine 20 mg tablet 20 mg PO TID #20 tabs 12/07/24 Unknown Rx ondansetron 4 mg disintegrating 4 mg PO Q6H PRN nausea and 12/07/24 Unknown Rx tablet vomiting #20 tabs Allergy/AdvReac Type Severity Reaction Status Date / Time Iodinated Contrast Media Allergy Shortness Verified 12/07/24 11:19 (CONTRASTS) of breath latex Allergy HIVES Verified 12/07/24 11:19 Latex, Natural Rubber Allergy Rash Verified 12/07/24 11:19 gluten AdvReac Abd Verified 12/07/24 11:19 cramps/diarrhea Surgical History H/O inguinal hernia repair Social History Smoking Status: Current some day smoker tobacco type: cigarettes ROS ROS ED ROS Narrative Constitutional: Denies fevers, chills, headaches Abdomen: Complains of abdominal pain as noted above and denies diarrhea or vomiting : Denies any urinary symptoms Neurological: Denies any numbness, wheeze, tingling Musculoskeletal: Denies back pain Skin: Denies any rashes or lesions EXAM Physical Exam Narrative Exam Narrative: General: Patient is lying in bed rest comfortably did not appear to be in acute distress Head: Atraumatic, normocephalic Eyes: PERRL bilaterally, EOMI blood, no conjunctival injection noted Neck: Soft, supple, trachea midline Cardiovascular: Regular rate and rhythm no murmurs gallops rubs noted Respiratory: Clear to auscultation bilaterally no rales rhonchi or wheezes noted Abdomen: Soft, nondistended, tenderness to palpation in the left lower quadrant suprapubic region no rebound or guarding on exam Extremities: +5/5 strength noted in the bilateral upper and lower extremities, radial pulse +2/4 in the bilateral extremities, no pedal edema on exam Neurological: Patient follow commands knew that she was at [facility] year is 2024 Skin: Warm, dry, tact no rashes or lesions noted Const Vital Signs: 12/07/24 11:18 12/07/24 13:17 12/07/24 15:08 Temperature 98.2 F Temperature Source Oral Pulse Rate 83 86 69 Respiratory Rate 18 16 18 Blood Pressure 129/90 H 115/76 115/76 Blood Pressure Mean 103 89 89 Pulse Ox 100 100 100 Oxygen Delivery Method Room Air Room Air MDM MDM MDM Narrative Medical decision making narrative: Patient is a 34-year-old female who presented to the emergency department the chief complaint of abdominal pain. On the differential diagnosis includes abdominal to intermittent ovarian torsion, ovarian torsion, UTI, bowel obstruction, diverticulitis, appendicitis, pancreatitis. Once workup is obtained reviewed she will be reevaluated. Patient's CBC was reviewed and showed no evidence leukocytosis white blood count normal 4.4, hemoglobin 12.8, platelet count of 119. Patient sodium is 138, potassium normal at 4.2, creatinine was 0.94. Patient's AST and ALT were 11 and 9 respectively. Patient's lipase was 19 test was negative. Patient urinalysis reviewed showed no evidence of infection. Patient's transvaginal ultrasound was reviewed and showed no acute abnormalities there is fibroid uterus noted. She was given a hard copy of these results for her own records. Patient CT abdomen pelvis with IV contrast was reviewed and showed no acute intra-abdominal abnormality there was addendum needed that there was a solid pulmonary nodule in the left lower lobe measuring [address] chest in 12 months if the patient is high risk for malignancy. Brian Society guidelines. She is given a hard copy of these results we discussed these results. I did advise her to show this to her primary care physician for their review as well. They are advised to follow-up with Dr. Grady at her next scheduled appointment as well as follow-up with [facility] [employer] as well. She is agreeable this plan as well as significant other bedside all question concerns answered she was discharged home in stable condition. Patient be given prescriptions for Bentyl and Zofran. Lab Data Labs: Laboratory Results - last 24 hr 12/07/24 11:45 WBC 4.4 RBC 4.28 Hgb 12.8 Hct 38.2 MCV 89.3 MCH 29.9 MCHC 33.5 RDW Std Deviation 41.4 RDW Coeff of Artur 12.6 Plt Count 119 L MPV 9.6 Immature Gran % (Auto) 0.200 Neut % (Auto) 61.5 Lymph % (Auto) 27.3 [place] % (Auto) 8.2 Eos % (Auto) 2.3 Baso % (Auto) 0.5 Absolute Neuts (auto) 2.7 Absolute Lymphs (auto) 1.20 Nucleated RBC % 0 Sodium 138 Potassium 4.2 Chloride 102 Carbon Dioxide 26.5 Anion Gap 9 BUN 9 Creatinine 0.94 Estim Creat Clear Calc 74.05 Est GFR (MDRD) Non-Af 81 BUN/Creatinine Ratio 9.5 L Glucose 86 Calcium 9.3 Total Bilirubin 0.38 AST 11 ALT 9 Alkaline Phosphatase 45 Total Protein 7.1 Albumin 4.4 Globulin 2.8 Albumin/Globulin Ratio 1.6 Lipase 19 Serum , Qual NEGATIVE Urine Color Yellow Urine Clarity Clear Urine pH 7.0 Ur Specific [place] 1.005 Urine Protein Negative Urine Glucose (UA) Normal Urine Ketones Negative Urine Occult Blood Negative Urine Nitrite Negative Urine Bilirubin Negative Urine Urobilinogen Normal Ur Leukocyte Esterase Negative Urine RBC 0 SEEN Urine WBC 0 SEEN Ur Squamous Epith Cells 0 SEEN Urine Bacteria 0 SEEN Urine Mucus 0 SEEN Radiography Diagnostic Testing: Clinical Impression(s) from Imaging Studies Transvaginal US 12/07/24 13:19 IMPRESSION: Fibroid uterus. No acute abnormality is seen. Reading Location: [facility] Abdomen/Pelvis CT 12/07/24 14:35 IMPRESSION: No acute intra-abdominal abnormality. Reading Location: [facility] Discharge Plan Triage Chief Complaint: Abd Pain ED Provider: Andrea Solares Dx/Rx/DC Orders Clinical Impression: Abdominal pain, Fibroid, History of hernia repair Prescriptions: New dicyclomine 20 mg tablet 20 mg PO TID Qty: 20 0RF ondansetron 4 mg tablet,disintegrating 4 mg PO Q6H PRN (Reason: nausea and vomiting) Qty: 20 0RF No Action hydroxyzine HCl 10 mg tablet 10 mg PO QHS ondansetron HCl 8 mg tablet 8 mg PO Q8H PRN (Reason: nausea and vomiting) Qty: 14 0RF Primary Care Provider: Prasad Nicole Referrals: Prasad Nicole MD [Primary Care Provider] - Activity Restrictions/Additional Instructions: Follow-up with your doctor in the outpatient setting. Show them the results of your ultrasound and your CT abdomen and pelvis. Follow-up with Dr. Grady at your scheduled appointment if you would like to try to get in sooner you can always attempt to call gastroenterology in [place] or [place]. Return with any other concerns. Take prescriptions as prescribed. Print Language: German Disposition Disposition: Home, Self Care
[2024-12-07 16:28] VITALS: BP 112/74; PULSE 66; RESP 16; TEMP 36.8; O2SAT 99
== END 2024-12-07 16:29 | disposition home or self-care (01) ==
PROVIDERS: Emergency Provider Emergency Medicine; PCP Family Medicine; Visit Provider Emergency Medicine
DX: D25.9 Leiomyoma of uterus, unspecified (principal); F17.210 Nicotine dependence, cigarettes, uncomplicated; R10.30 Lower abdominal pain, unspecified
CPT/HCPCS: 74177; 76830; 80053; 81001; 83690; 84703; 85025; 96361; 96374; 96375; 99283; Q9967; A4216

== ENCOUNTER 2024-12-13 14:10 | Emergency (ER) | payer OTHER, SELFPAY ==
[2024-12-13 14:11] VITALS: BP 147/103; PULSE 89; RESP 16; TEMP 36.5; O2SAT 100; BMI 24.8
--- NOTE | 2024-12-13 14:32 | CT_ITS ---
PROCEDURE: ABDOMEN/PELVIS W IV CONT ONLY 12/13/2024 REASON FOR EXAM: RIGHT LOWER QUADRANT ABDOMINAL PAIN TECHNIQUE: ABDOMEN/PELVIS W IV CONT ONLY Coronal and Sagittal reconstruction series were provided. One or more dose reduction techniques were used (e.g., Automated exposure control, adjustment of the mA and/or kV according to patient size, use of iterative reconstruction technique. RADIATION DOSE SUMMARY: DLP: 443.2 mGycm COMPARISON: Abdominal CT 12/07/2024. FINDINGS: Lung bases: Clear. Liver: Normal. Small region of focal fatty infiltration along the falciform ligament. Gallbladder: Unremarkable, no biliary ductal dilatation. Spleen: Normal size and morphology. Pancreas: Unremarkable. Adrenals: Unremarkable. Kidneys: Normal, symmetric enhancement. No urolithiasis or hydroureteronephrosis. Bladder: Unremarkable. Reproductive Organs: Prominent endometrium likely physiologic related to patient's menstrual cycle. Small hyperenhancing probable fibroid at the anterior aspect of the uterine body measuring roughly 10 mm. Probable left ovarian simple cyst/dominant follicle measuring 2.5 cm. Unremarkable right ovary. Bowel: No evidence of obstruction or active inflammatory process. Normal appendix identified in the right lower quadrant. Large stool burden throughout the colon likely reflect constipation. Lymph nodes: No suspicious lymph node enlargement. Vasculature: The abdominal aorta and IVC are normal. Peritoneum / Retroperitoneum: No ascites or free air. Trace pelvic fluid, likely physiologic. Evidence of prior right lower abdominal wall/inguinal hernia repair with multiple surgical clips. Bones: Unremarkable. CT/Abdomen/Pelvis W IV Cont ONLY IMPRESSION: 1. No acute or active inflammatory intra-abdominal pathology identified. 2. Normal appendix. No urolithiasis or hydroureteronephrosis. 3. Large stool burden throughout the colon likely reflecting constipation. 4. Small hyperenhancing 10 mm presumed uterine fibroid could potentially explai n pelvic pain. Prominence of the endometrium likely physiologic related to patient's menstrual cycle. 5. Left ovarian simple cyst measuring 2.5 cm, no specific follow-up indicated. Reading Location: [id number]
--- NOTE | 2024-12-13 14:52 | EX.ED.DYSGE1 ---
HPI History of Present Illness Chief Complaint: Abd Pain Narrative Narrative: Chief complaint and HPI: Abdominal pain. History taken by patient as well as medical record. 34-year-old female with past medical history of brain bleed, hernia presents to the emergency department for abdominal pain. Abdominal pain has been ongoing for several weeks. She has seen multiple providers. She states she is scheduled to see GI in December. Patient states when she attempts to eat anything she becomes bloated and nauseated. She saw her primary care physician who ordered an x-ray that was unremarkable. She has followed up with her FITNESS PROFESSIONAL due to her history of a cyst. She has had an ultrasound of her abdomen including her gallbladder which she was told was normal. She states she was tested for STIs which were negative. Patient was seen in our emergency department on 12/07/2024 with the same complaint. She had laboratory workup that was relatively unremarkable. No urinary tract infection. She had a CT abdomen pelvis that showed no acute intra-abdominal abnormality. She did have a solid pulmonary nodule in the left lower lobe recommended repeat in 1 year. She had a transvaginal ultrasound that showed fibroid uterus. Patient states since being seen she developed more pain in the right lower quadrant which she describes as sharp. Endorses acid reflux. Otherwise symptoms are the same. She denies any fever, chills, shortness of breath, chest pain, diarrhea, constipation, dysuria. Review of systems: See HPI Medications: As listed on the chart Allergies: As listed on the chart PFSH: Per chart Vital signs: As listed on the chart. Reviewed. Physical exam: Gen: A&O x3, NAD Head: Normocephalic, atraumatic Eyes: No sclera icterus, conjunctiva clear ENT: Moist mucous membranes Neck: Trachea midline, No JVD CV: RRR, no murmurs, no peripheral edema Resp: Lungs CTA BL, no w/r/c GI: Abd soft, non-distended, mildly tender to palpation diffusely, no r/r/g : No CVA tenderness Musc: Full ROM, no deformity Skin: Warm, dry Neuro: Alert, oriented, grossly intact, sensation intact Psych: Cooperative, appropriate mood and affect [facility] Medical History Hernia Brain bleed Home Medications ?Medication ?Instructions ?Recorded ?Last Taken ?Type dicyclomine 20 mg tablet 20 mg PO TID #20 tabs 12/07/24 12/08/24 Rx ondansetron 4 mg disintegrating 4 mg PO Q6H PRN nausea and 12/07/24 12/10/24 Rx tablet vomiting #20 tabs acetaminophen-pamabrom 500 mg-25 1 tab PO Q6H PRN menstrual pain 12/13/24 12/11/24 History mg tablet (Midol) bupropion HCl 300 mg 24 hr tablet, 300 mg PO DAILY 12/13/24 12/13/24 History extended release ibuprofen 200 mg tablet (Advil) 400 mg PO Q6H PRN pain 12/13/24 Unknown History Allergy/AdvReac Type Severity Reaction Status Date / Time Iodinated Contrast Media Allergy Shortness Verified 12/13/24 14:13 (CONTRASTS) of breath latex Allergy HIVES Verified 12/13/24 14:13 Latex, Natural Rubber Allergy Rash Verified 12/13/24 14:13 gluten AdvReac Abd Verified 12/13/24 14:13 cramps/diarrhea Surgical History H/O inguinal hernia repair Social History Smoking Status: Current every day smoker tobacco type: cigarettes EXAM Physical Exam Const Vital Signs: 12/13/24 14:11 12/13/24 15:13 Temperature 97.7 F L 98.3 F Temperature Source Oral Oral Pulse Rate 89 68 Respiratory Rate 16 16 Blood Pressure 147/103 H 122/84 H Blood Pressure Mean 117 96 Pulse Ox 100 100 Oxygen Delivery Method Room Air Room Air MDM MDM MDM Narrative Medical decision making narrative: 34-year-old female with past medical history of brain bleed, hernia presents to the emergency department for abdominal pain. Abdominal pain has been ongoing for several weeks. She has seen multiple providers for same complaint with relatively unremarkable workup. She is scheduled to see GI in December. History was taken by patient as well as medical record. See HPI. Differential diagnosis includes but is not limited to GERD, gastritis, PUD, IBS, UTI, appendicitis or other intra-abdominal pathology although suspect less likely given that this has been going on for several weeks. Pepcid, morphine, Zofran, NS bolus ordered. Will repeat CT abdomen and pelvis given that patient states she is having more pain in the right lower quadrant. Patient has allergy to contrast therefore Solu-Medrol and Benadryl ordered. CBC without leukocytosis or anemia. Patient has baseline thrombocytopenia. UA negative for UTI. Serum negative. CMP, lactic acid, lipase currently pending along with CT abdomen pelvis. Patient signed out to oncoming physician. He will wait results. Lab Data Labs: Laboratory Results - last 24 hr 12/13/24 15:15 WBC 5.7 RBC 4.16 L Hgb 12.3 Hct 36.5 L MCV 87.7 MCH 29.6 MCHC 33.7 RDW Std Deviation 40.3 RDW Coeff of Artur 12.7 Plt Count 142 L MPV 10.2 Immature Gran % (Auto) 0.200 Neut % (Auto) 61.7 Lymph % (Auto) 29.0 [place] % (Auto) 7.4 Eos % (Auto) 1.2 Baso % (Auto) 0.5 Absolute Neuts (auto) 3.5 Absolute Lymphs (auto) 1.65 Nucleated RBC % 0 Serum , Qual NEGATIVE Urine Color Straw Urine Clarity Clear Urine pH 7.0 Ur Specific [place] 1.010 Urine Protein Negative Urine Glucose (UA) Normal Urine Ketones Negative Urine Occult Blood Negative Urine Nitrite Negative Urine Bilirubin Negative Urine Urobilinogen Normal Ur Leukocyte Esterase Negative Urine RBC 0-5 SEEN Urine WBC 0-5 SEEN Ur Squamous Epith Cells 0-5 SEEN Urine Bacteria 0 SEEN Urine Mucus 0 SEEN Discharge Plan Triage Chief Complaint: Abd Pain ED Provider: Homer Lowry Dx/Rx/DC Orders Prescriptions: No Action bupropion HCl 300 mg tablet extended release 24 hr 300 mg PO DAILY Midol 500-25 mg tablet 1 tab PO Q6H PRN (Reason: menstrual pain) ibuprofen [Advil] 200 mg tablet 400 mg PO Q6H PRN (Reason: pain) dicyclomine 20 mg tablet 20 mg PO TID Qty: 20 0RF ondansetron 4 mg tablet,disintegrating 4 mg PO Q6H PRN (Reason: nausea and vomiting) Qty: 20 0RF Primary Care Provider: Prasad Nicole Referrals: Prasad Nicole MD [Primary Care Provider] - Print Language: German
[2024-12-13] MEDS: DiphenhydrAMINE 50 MG/ML Syringe 25 MG IV (14:58)
[2024-12-13] MEDS: 0.9% Normal Saline (1000mL) 1,000 ML 999 ML IV (15:00)
[2024-12-13] MEDS: Famotidine 200 MG/20 ML MDV 20 MG in 0.9% Normal Saline (Pres. free 8 ML 300 MG IV (15:12)
[2024-12-13 15:13] VITALS: BP 122/84; PULSE 68; RESP 16; TEMP 36.8; O2SAT 100
[2024-12-13 15:25] LABS: Mucous, Urine 0 SEEN /hpf (<or=2+)
[2024-12-13 15:42] LABS: Hematocrit 36.5 % (37-47); Hemoglobin 12.3 g/dL (12.0-15.0); Immature Granulocytes Count 0.010 X10^3/uL (0.0-0.0); Mean Corp Hgb Conc 33.7 g/dL (32-36); Mean Corpuscular Volume 87.7 fL (81-99); Mean Platelet Vol. 10.2 fl (6.2-12.0); NRBC Flagged by Analyzer 0 % (0-5); Platelet Count 142 K/mm3 (150-450); RBC Distribution Width CV 12.7 % (11.6-14.6); RBC Distribution Width SD 40.3 fl (35.1-43.9); Red Blood Count 4.16 M/mm3 (4.2-5.4); White Blood Count 5.7 K/mm3 (4.4-11.0)
[2024-12-13 15:44] LABS: Color, Urine Straw (Yellow); Glucose, Dipstick Normal (Normal); Ketone-Dipstick Negative (Negative); Leukocyte Esterase-Dipstick Negative /ul (Negative); Nitrite-Dipstick Negative (Negative); Occult Blood-Urine Negative /ul (Negative); Protein-Dipstick Negative (Negative); Specific Gravity, Urine 1.010 (1.002-1.030); Urine Bilirubin Dipstick Negative (Negative)
[2024-12-13 16:10] VITALS: BP 115/89; PULSE 16; RESP 76; O2SAT 100
[2024-12-13 16:18] LABS: Red Blood Cells-Urine 0-5 SEEN /hpf (0-5); Squamous Epithelial Cells - UA 0-5 SEEN /hpf (5-10)
[2024-12-13 16:19] LABS: Internal QC Validated? YES +Cl - CLEAR BKGD; Pregnancy, Serum, hCG Quali. NEGATIVE Negative; Record Kit Lot#, Serum Preg. 962302
[2024-12-13 16:26] LABS: AST(SGOT) 12 U/L (<=31); Alanine Aminotransfer ALT/SGPT 10 U/L (<=34); Albumin, Serum 4.4 g/dL (3.5-5.0); Alkaline Phosphatase 41 U/L (35-104); Anion Gap 13 (5-15); BUN 12 mg/dL (4-19); BUN/Creat Ratio 11.9 RATIO (10-20); Bilirubin, Direct 0.16 mg/dL (0.00-0.30); Calcium,Total 9.4 mg/dL (7.6-11.0); Carbon Dioxide 24.1 mmol/L (21.0-32.0); Chloride 102 mmol/L (98-108); Estimated Creatinine Clearance 69.88 ml/min (50-250); Globulin 2.7 g/dL (2.2-4.2); Glucose 82 mg/dL (70-99); Lipase 21 U/L (13-75); Potassium 3.5 mmol/L (3.3-5.1)
[2024-12-13 18:00] VITALS: BP 142/85; PULSE 81; RESP 18; O2SAT 100
[2024-12-13 19:27] VITALS: BP 125/81; PULSE 76; RESP 18; TEMP 36.6; O2SAT 100
== END 2024-12-13 19:37 | disposition home or self-care (01) ==
PROVIDERS: Emergency Provider Surgery; PCP Family Medicine; Visit Provider Surgery
DX: R10.9 Unspecified abdominal pain (principal); K21.9 Gastro-esophageal reflux disease without esophagitis; F17.210 Nicotine dependence, cigarettes, uncomplicated; Z79.899 Other long term (current) drug therapy
CPT/HCPCS: 74177; 80048; 80076; 81001; 83605; 83690; 84703; 85025; 96361; 96374; 96375; 96376; 99283; Q9967; A4216; J2405

== ENCOUNTER → 2024-12-19 | Outpatient (CLI) | payer OTHER, SELFPAY ==
[2024-12-19 10:52] LABS: CRP < 3.00 mg/L (0.0-3.0); LDH 138 U/L (84-246)
[2024-12-25 08:07] LABS: Egg, White <0.10 kU/L (Class 0); SCALLOP <0.10 kU/L (Class 0); SESAME SEED <0.10 kU/L (Class 0); Walnut, (Food) <0.10 kU/L (Class 0)
== END | disposition home or self-care (01) ==
LOC: LAB 09:17
PROVIDERS: PCP Family Medicine; Referring Provider Internal Medicine Gastroenterology; Visit Provider Internal Medicine Gastroenterology
DX: R11.0 Nausea (principal); R10.9 Unspecified abdominal pain
CPT/HCPCS: 36415; 82784; 83516; 83615; 84165; 85652; 86003; 86036; 86140; 86255; 86334; 86671

== ENCOUNTER → 2024-12-29 | Outpatient (CLI) | payer OTHER, SELFPAY ==
--- NOTE | 2024-12-29 12:37 | NM_ITS ---
PROCEDURE: HEPATOBILLIARY IMG W/PHARM INT 12/29/2024 REASON FOR EXAM: ABDOMINAL PAIN WITH EATING TECHNIQUE: Intravenous Choletec with planar imaging of the abdomen. 1.3 mcg Kinevac intravenously approximately 60 minutes after the radiopharmaceutical with additional anterior imaging and a region of interest drawn around the gallbladder to calculate a time-activity curve. RADIOPHARMACEUTICAL: Mebrofenin DOSE 5mCi COMPARISON: None FINDINGS: There is good uptake of the radiopharmaceutical by the liver. Normal gallbladder visualization with the gallbladder identified by 30 minutes. Gallbladder Ejection Fraction: 86 % (Normal is >35%) NM/Hepatobilliary Img w/Pharm Int IMPRESSION: Normal gallbladder ejection fraction of 86%. Reading Location: [id number]
== END | disposition home or self-care (01) ==
PROVIDERS: PCP Family Medicine; Referring Provider Internal Medicine Gastroenterology; Visit Provider Internal Medicine Gastroenterology
DX: R11.0 Nausea (principal); R10.9 Unspecified abdominal pain; N83.209 Unspecified ovarian cyst, unspecified side
CPT/HCPCS: 78227; A9537; J2805

== ENCOUNTER → 2025-01-04 | Outpatient (CLI) | payer OTHER, SELFPAY ==
--- NOTE | 2025-01-04 12:47 | NM_ITS ---
PROCEDURE: GASTRIC EMPTYING STUDY 01/04/2025 REASON FOR EXAM: ABODMINAL PAIN WITH EATING COMPARISON: None TECHNIQUE: The patient ingested a standard meal of oatmeal. Total time taken to ingest the meal was 60 minutes. Approximately 100 % of the meal was ingested. There was no vomiting postprandially. Anterior and posterior planar images of the upper abdomen were obtained for 1 minute immediately following the meal at 1h. Regions of interest were drawn, and a geometric mean was used to calculate a [id number]. Fasting Blood Glucose (if diabetic): Not obtained Medications taken in the past 24 hours that may affect gastric emptying: None RADIOPHARMACEUTICAL: Technetium 99 sulfur colloid DOSE 1mCi FINDINGS: Percent activity remaining in stomach: 1 hour 56 % (normal 37-90%) NM/Gastric Emptying Study IMPRESSION: Normal gastric emptying with 56% emptying at the end of 1 hour. Please note this study is done following 1 hour protocol with oat meal as per [facility] policy. Reading Location: [id number]
== END | disposition home or self-care (01) ==
LOC: NM 12:47
PROVIDERS: PCP Family Medicine; Referring Provider Internal Medicine Gastroenterology; Visit Provider Internal Medicine Gastroenterology
DX: R11.0 Nausea (principal); N83.209 Unspecified ovarian cyst, unspecified side; R10.9 Unspecified abdominal pain
CPT/HCPCS: 78264; A9541

== ENCOUNTER → 2025-02-08 | Outpatient (CLI) | payer OTHER, SELFPAY ==
--- NOTE | 2025-02-08 13:54 | CT_ITS ---
PROCEDURE: ABDOMEN/PELVIS WITHOUT CONT 02/08/2025 REASON FOR EXAM: L INGUINAL PAIN WITH BULGE TECHNIQUE: Procedure Code: CTABDPEL Modality: CT Procedure: ABDOMEN/PELVIS WITHOUT CONT Noncontrast technique limits evaluation of the abdominal and pelvic viscera. Coronal and Sagittal reconstruction series were provided. One or more dose reduction techniques were used (e.g., Automated exposure control, adjustment of the mA and/or kV according to patient size, use of iterative reconstruction technique). RADIATION DOSE SUMMARY: CTDlvol: 6.5 mGy DLP: 301 mGycm COMPARISON: CT abdomen and pelvis without contrast FINDINGS: Lung bases: Stable 3 mm solid nodule within left lower lung (2. Liver: Normal size. No obvious mass. Gallbladder: Unremarkable Spleen: Normal size. Pancreas: Normal size. No surrounding inflammation. Adrenals: Unremarkable Kidneys: No urolithiasis. No hydronephrosis. Bladder: Bladder is underdistended. Reproductive Organs: Prominent uterus with suggestion of uterine fibroid. Limited evaluation due to noncontrast CT. Bowel: Large stool burden. Limited evaluation of bowel due to lack of oral contrast. Appendix: The appendix is not identified. There is no inflammatory process identified in the right lower quadrant to suggest appendicitis. Lymph nodes: Unremarkable. Vasculature: The abdominal aorta and IVC contours are normal. Noncontrast technique limits evaluation. Peritoneum / Retroperitoneum: Multiple high density material is visualized along anterior abdominal wall, likely related to prior surgery. Bones: Unremarkable Other: Mild soft tissue induration within left inguinal region likely inflammatory related to prior surgery. CT/Abdomen/Pelvis without Cont IMPRESSION: [id number] stool burden. Limited evaluation of bowel due to lack of ora l contrast. Postsurgical changes within anterior abdominal wall related to prior hernia bertram elizabeth. No definite evidence of any abnormality within left inguinal region. If there is concern for hernia at this site, ultr asound with Valsalva maneuver can be obtained. Reading Location: [id number]
== END | disposition home or self-care (01) ==
LOC: CT 13:52
PROVIDERS: PCP Family Medicine; Referring Provider Family Medicine; Visit Provider Family Medicine
DX: R10.9 Unspecified abdominal pain (principal)
CPT/HCPCS: 74176

== ENCOUNTER 2025-03-01 07:57 | Day surgery (SDC) | payer OTHER, SELFPAY ==
[2025-03-01] VITALS (9 sets, daily range): BP systolic 103–133; BP diastolic 33–91; PULSE 68–90; RESP 12–18; TEMP 36.6; O2SAT 98–100; BMI 23.8
--- NOTE | 2025-03-01 08:25 | PRE.ANES_ITS ---
ASA Classification* ASA Classification ASA Classification: 2 Assessment & Plan Anesthesia* Anesthesia Assessment Anesthesia Assessment: Discussed sedation and/or anesthesia options, risks, benefits, and alternatives with patient/parents/legal guardian/POA. Questions invited. The patient/parents/legal guardian/POA seems to understand and agrees to proceed with anesthesia plan. Reviewed the physical assessment, medical history, allergy history and patient home medications list prior to surgery/procedure/anesthetic and documented any changes. Performed airway and anesthesia risk assessments. Anesthesia Type Anesthesia Type: General Anesthesia Focused Assessment* Airway Assessment Mouth opens: >3 cm Mallampati Score: II Labs Anesthesia Preop lab: CBC WBC, (4.4-11.0) 5.7 K/mm3 12/13/24, 15:15 RBC, (4.2-5.4) 4.16 M/mm3 L 12/13/24, 15:15 Hgb, (12.0-15.0) 12.3 g/dL 12/13/24, 15:15 Hct, (37-47) 36.5 % L 12/13/24, 15:15 Plt Count, (150-450) 142 K/mm3 L 12/13/24, 15:15 CHEMISTRY Potassium, (3.3-5.1) 3.5 mmol/L 12/13/24, 15:15 Sodium, (133-145) 138 mmol/L 12/13/24, 15:15 Magnesium, (1.6-2.6) 2.2 mg/dL 08/25/23, 23:58 BUN, (4-19) 12 mg/dL 12/13/24, 15:15 Creatinine, (0.70-1.20) 1.00 mg/dL 12/13/24, 15:15 Glucose, (70-99) 82 mg/dL 12/13/24, 15:15 COAG Pre-Assessment Diagnosis/Proposed Procedure Planned Operative Procedure(s): (L) Diagnostic Lap w/possible Robotic Left Inguinal Hernia w/mesh Anesthesia History 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 When Was Last Pacemaker Check QUESTION #4 FULL TEXT: You/Your Family Experience fever (hyperthermia) with Anesthesia Last Oral Intake Last Oral intake: Last Oral Intake NPO since Meds taken in AM with sips of water? Meds patient instructed to take am of surgery PONV PONV - stitching department supervisor: PONV - stitching department supervisor Female Yes 02/27/25 12:31 HX of Motion Sickness Yes 02/27/25 12:31 HX of N/V After Surgery No 02/27/25 12:31 Non-Smoker No 02/27/25 12:31 Duration of Surgery greater Yes 02/27/25 12:31 than 60 minutes Number of Risk Factors 3 02/27/25 12:31 PONV Score Moderate Risk 02/27/25 12:31 Height & Weight Height & Weight: Anesthesia: Height & Weight Height 5 ft 3 in 02/21/25 15:10 Respiratory Assessment Respiratory Assessment - stitching department supervisor: Respiratory Tract Infection Hx - stitching department supervisor Hx Respiratory Tract Infection No 02/27/25 12:31 STOP Sleep Apnea STOP Sleep Apnea - stitching department supervisor: STOP Sleep Apnea - stitching department supervisor Hx Hypertension No 02/27/25 12:31 Hx Sleep Apnea No 02/27/25 12:31 CPAP BIPAP Do you snore loudly (louder No 02/27/25 12:31 than talking or can be heard Do you often feel tired/ No 02/27/25 12:31 fatigued/ sleepy during daytime? Has anyone observed you stop No 02/27/25 12:31 breathing during sleep? STOP Results Negative 02/27/25 12:31 QUESTION #5 FULL TEXT : Do you snore loudly (louder than talking or can be heard through closed doors)? 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 Specify any problems Hx of Preganancy in last 3 N/A 02/27/25 12:31 Months Nurse Filling Out Transfusion NBUCHER 02/27/25 12:31 & Questions: Date: 02/27/25 02/27/25 12:31 Time: 12:34 02/27/25 12:31 Patient unable to answer at this time (ie. confused, unrespo /Reproduction History /Reproductive History - stitching department supervisor: /Reproductive Hx- stitching department supervisor Hx Now No 02/27/25 12:31 Gestational Age (in weeks): EDC: Hx Hx Para Hx Section SAB No 02/27/25 12:31 Active Medications Active Medications: Current Medications Generic Name Dose Route Start Last Admin Trade Name Freq PRN Reason Stop Dose Admin Cefazolin Sodium 2 gm/ Sodium 110 mls @ 200 mls/hr 03/01/25 13:30 Chloride IV 03/01/25 14:02 INTRAOP ONE Lactated Ringer's 1,000 mls @ 15 mls/hr 03/01/25 08:15 IV .Q48H NAZ PFSH Medical History History of suicidal ideation Alcohol use Migraine headache Smoker History of edema Hernia Brain bleed Home Medications ?Medication ?Instructions ?Recorded ?Last Taken ?Type bupropion HCl 300 mg 24 hr tablet, 300 mg PO DAILY 12/13/24 History extended release ibuprofen 200 mg tablet (Advil) 400 mg PO Q6H PRN pain 12/13/24 Unknown History ondansetron 4 mg disintegrating 4 mg PO Q8H PRN PRN Na usea #10 tabs 12/13/24 Unknown Rx tablet calcium carbonate 500 mg PO TID 02/21/25 Unkno wn History herballax PO 02/21/25 Unknown History multivitamin with iron 1 tab PO QDAY 02/21/25 Unkno wn History Allergy/AdvReac Type Severity Reaction Status Date / Time Iodinated Contrast Media Allergy Shortness Verified 02/27/25 12:29 (CONTRASTS) of breath latex Allergy HIVES Verified 02/27/25 12:29 Latex, Natural Rubber Allergy Rash Verified 02/27/25 12:29 gluten AdvReac Abd Verified 02/27/25 12:29 cramps/diarrhea Family History Mother Alcoholism Anxiety Depression Father Asthma Hypertension Surgical History H/O inguinal hernia repair Social History Smoking Status: Light Smoker (<10/day) alcohol intake: former year quit: 2023 substance use type: does not use what type of physical activity do you participate in: walking Review of Systems (Anesthesia) ROS Narrative System reviewed and no additional complaints, except as documented.
[2025-03-01 08:35] LABS: Internal QC Validated? YES +Cl - CLEAR BKGD; Pregnancy, Urine Negative Negative; Record Kit Lot#,Urine Preg 0000980607
[2025-03-01] MEDS: Lactated Ringers 1,000 ML 15 ML IV ×2 (08:41→10:56)
--- NOTE | 2025-03-01 08:45 | PCM.HP.BLA ---
History and Physical Date of Admission: 03/01/25 Date of Service: 02/21/25 MR#: [id number] Acct: [id number] Name: RIKY LANDEROS Rep #: [id number] : 1990 Provider: Dr. Erica Oliveira MD Age/Sex: 34/F Location: [facility] Status: Signed Intake Vital Signs 12/13/2513:11 02/21/2515:10 Height 5 ft 3 in 5 ft 3 in Weight: 140 lb BMI 24.7 BP 147/94 H Blood Pressure Location Rt brachial Position Sitting Respiration 17 Pulse 92 Pulse Source Monitor Temp 97.7 F L Temp Source Temporal Pulse Oximetry (%) 98 Oxygen Delivery Method room air Intake Visit Reasons: ABDOMINAL PAIN Chief Complaint: abdominal pain/constipation Is patient in pain?: Yes (abdominal pain, aches depends on food eats) Allergies Iodinated Contrast Media (CONTRASTS) Allergy (Verified 02/21/25 15:11) Shortness of breath latex Allergy (Verified 02/21/25 15:11) HIVES Latex, Natural Rubber Allergy (Verified 02/21/25 15:11) Rash gluten Adverse Reaction (Verified 02/21/25 15:11) Abd cramps/diarrhea Medications ?Medication ?Instructions ?Recorded ?Confirmed ?Type acetaminophen-pamabrom 500 mg-25 1 tab PO Q6H PRN menstrual pain 12/13/24 02/21/25 History mg tablet (Midol) bupropion HCl 300 mg 24 hr tablet, 300 mg PO DAILY 12/13/24 02/21/25 History extended release ibuprofen 200 mg tablet (Advil) 400 mg PO Q6H PRN pain 12/13/24 02/21/25 History ondansetron 4 mg disintegrating 4 mg PO Q8H PRN PRN Nausea #10 tabs 12/13/24 02/21/25 Rx tablet calcium carbonate 500 mg PO QDAY 02/21/25 02/21/25 History herballax PO 02/21/25 02/21/25 History multivitamin with iron 1 tab PO QDAY 02/21/25 02/21/25 History PFSH Medical History Hernia Brain bleed Surgical History H/O inguinal hernia repair Family History Mother Alcoholism Anxiety Depression Father Asthma Hypertension Social History (Updated 12/19/24 @ 09:06 by Kiana Scott) Smoking Status: Current every day smoker tobacco type: cigarettes alcohol intake: former year quit: 2023 substance use type: does not use what type of physical activity do you participate in: walking HPI HPI HPI: 34-year-old female presents due to abdominal bloating lower as well as some constipation for the last 3 months.. Patient states she has seen GI did not have an EGD or colonoscopy done at that time. Patient states she does occasionally get some left lower quadrant/groin pain after eating. Patient previously did undergo a laparoscopic right inguinal hernia repair in 2014 in [place]. Patient states she did contact that surgeon however they do not take her current insurance. Patient states she has gone through quite a bit of work up currently and cannot afford to take off more time for tests and is very interested in having the diagnostic laparoscopy look for another possible hernia of the left groin. Patient CT abdomen hernia suggested possible ultrasound with Valsalva. Patient has not noticed any bulge in the left groin. Patient states she has been constipated and having a hard bowel movement did initially tried the smooth move tea but that made her have more diarrhea. Prior to that patient did try MiraLAX about 2 months ago 2 times a day denies any changes per patient. Currently patient is taking the herbalax which does resolve the diarrhea and she takes it about every couple days as needed. Patient states she does get reflux symptoms occasionally and unable to really eat solid food is eating more liquids. Patient has also changed her diet recently and has been avoiding gluten, dairy, soy. Patient states about a couple weeks ago did start calcium 10 mg twice daily to 3 times daily and states that has helped with her symptoms. Patient states she can get, nauseated shortly after eating. Patient states prior to 3 months ago she had been eating a healthy diet and been quite active with running. Patient did previously lots of fruits and vegetables and nothing changed in her diet to explain the constipation. ROS General General: Yes weight change; No appetite, fatigue, colon cancer or breast cancer HEENT HEENT: No difficulty swallowing, eye injury, eye surgery, swollen glands or hoarseness Endo Endocrine: No thyroid disease, diabetes mellitus, thyroid cancer, Hair loss, heat intolerance or cold intolerance Skin Skin: No rash or changing moles Musc Musculoskeletal: No back problems, arthritis, rheumatoid arthritis, gout or joint pain Cardio Cardiovascular: Yes murmur; No pacemaker, heart disease, atrial fibrillation, high blood pressure, heart attack, heart stent, palpitations, shortness of breath with exertion or chest pain Psych Psychiatric: Yes anxiety; No depression or hearing voices Resp Respiratory: No shortness of breath, No sleep apnea, No cough, No COPD, No asthma, No emphysema and No wheezing Gastro Gastrointestinal: Yes abdominal pain, Yes nausea or vomiting, No diarrhea, Yes constipation, No blood in stool, Yes acid reflux, No hemorrhoids, No ulcers, No gallbladder problem and No black,tarry stools [place] Hematologic: No blood thinners, No blood disorders, No bleeding, Yes anemia and No blood clots Neuro Neurologic: No numbness and No tingling Exam Const General: cooperative, healthy appearing, comfortable and no acute distress HENMT Head: normocephalic and atraumatic Neck Neck: supple Resp Effort & Inspection: normal respiratory effort Cardio Rate: regular rate GI Inspection: non-distended Palpation: soft, no hernias (No left inguinal hernia appreciated on exam with bedside ultrasound) and nontender Skin General: no rashes or lesions noted Neuro General: CN's II-XI intact bilaterally Extrem General: normal to inspection Psych Mental Status: mental status grossly normal Attitude: cooperative Assessment and Plan Assessment and Plan (1) Left groin pain: Status: Acute (2) Bloating: Status: Acute (3) Constipation: Status: Acute Plan Did review CT abdomen pelvis with the patient no obvious hernia seen on the CAT scan. Again no obvious hernia was seen on exam clinically as well. Patient is very interested in having a diagnostic laparoscopy to officially rule out hernia as they cannot always be seen on CAT scan and clinically. Did discuss with patient that I doubt hernia would be the cause of her constipation as typically it would be a larger hernia that would be able to be seen on either CT or clinically. Discussed procedure of diagnostic laparoscopy, possible robotic left inguinal hernia repair with mesh. Discussed with patient that risks include but not limited to hernia, injury to other organ, and anesthesia. Discussed that if no hernia was seen on diagnostic laparoscopy there would be no repair done. Also discussed patient may need an EGD or colonoscopy for further workup with the constipation in the future. Patient was agreeable with plan. Erica Oliveira M.D. Pager: [phone] [facility] [address] [place] [address], [address], [address] [place] [address] Office: [phone] Coding Level of Care Code Off vis,new,level 4 Diagnoses Left groin pain R10.32 Bloating R14.0 Constipation K59.00 02/26/25 1157 <Electronically signed by Erica Oliveira MD> Date Erica Oliveira MD
--- NOTE | 2025-03-01 10:05 | OP.PCM_ITS ---
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 Engineering Inspection Assistant: Bonnie Warner Tasks completed by visual merchandising assistant: Opening & closing Type of Anesthesia: General/Supplemental RN Documented Start/Stop Times: Operation Date: 03/01/25 09:30 Case Time Into Pre-Op 03/01/25 08:00 Out of Pre-Op 03/01/25 09:23 Anesthesia Start 03/01/25 09:26 Into Room 03/01/25 09:26 Procedure Start 03/01/25 09:40 Procedure End 03/01/25 10:08 Anesthesia End 03/01/25 10:12 Out of Room 03/01/25 10:12 Into Recovery 03/01/25 10:18 Into Phase II Recovery 03/01/25 11:15 Out of Recovery 03/01/25 11:15 Out of Phase II 03/01/25 12:50 Procedure Start Time: 09:40 Procedure Stop Time: 10:08 Select all DRAINS/GRAFTS/IMPLANTS that apply: None Special Medications: Ancef 2 g IV x 1 Estimated Blood Loss: < 10 cc Specimen collected: No Description of surgery: Indications: 34-year-old female presented with left groin pain, bloating. Diagnostic laparoscopy was elected for possible left inguinal hernia repair with mesh, possible open right inguinal hernia repair with mesh. Description of procedure: Patient was brought to operating room placed supine operative table. Timeout was completed verifying correct patient, procedure, site, positioning, special, prior to beginning procedure. General anesthesia was induced. Patient's arms were tucked and padded appropriately. Visiport was used to make the incision at Ochoa's point in the left upper quadrant. Entry into the abdomen was confirmed visually. Laparoscope was placed. Verifying no injury during initial trocar placement. Patient did get some subcutaneous air during port placement. Patient was placed in Trendelenburg position. Additional 5 mm port was placed in the left upper quadrant. No inguinal hernias were seen. No adhesions. Sigmoid colon appeared normal. Pictures were taken during surgery. Trocars removed under direct visualization. The abdomen was allowed to collapse. Skin was closed with 4-0 Monocryl. Patient tolerated procedure well was taken to the postanesthesia care unit in stable condition. Surgical Findings: No left or right inguinal hernia or no adhesions in the pelvis. Complications Complications: No
--- NOTE | 2025-03-01 10:10 | DCINST_ITS ---
Discharge Instructions Diet Discharge Diet: Light diet - advance as tolerated Activity Discharge Activity: May Not Drive (while taking narcotic pain medications.) May shower in (days): 1 Lifting Restrictions: no lifting >20 lbs x 2 wks, no strenuous exercise for 4 wks Dressing / Incision Call your doctor if your incision/area has: Continuous Slow Oozing, Sudden Increased Bleeding, Increased Pain/ Swelling, Increased Redness, Foul Smelling Discharge and Swelling at the incision site Call your doctor if you observe: Fever of 101 or Higher Remove Dressing in: 2 days Cleanse incision/area with: Soap & Water Additional Dressing/Incision Instructions:: Steri-Strips will fall off in 7 to 10 days, if they do not fall off okay to remove after 10 days. Follow Up Care Please Follow Up With: Erica Oliveira MD When: Call the office for a follow-up appointment 2 weeks; after 5 PM and on the weekends call [phone] with any concerns. Test Results: Test results from this visit will be discussed in further detail at your follow- up appointment, if applicable. Discharge Plan Admission Attending Provider: Erica Oliveira Primary Care Provider: Federico Schultz Instructions Additional Instructions / Restrictions: Okay to take ibuprofen 400-600 mg PO q6hr PRN pain and/or Tylenol 650mg PO Q6H PRN pain along with Tramadol. Take all pain meds with food. Tramadol can cause constipation recommend taking daily stool softener (i.e. Colace/docusate) while taking the pain meds. Recommend starting some MiraLAX in 1-2 days if no bowel movement. If still no bowel movement the next day recommend taking magnesium citrate half the bottle and waiting 4-6 hours if still no results take the other half the bottle. Print Language: Algerian Discharge Orders/Prescriptions Prescriptions: New tramadol 50 mg tablet 50 mg PO Q6H PRN (Reason: pain) Qty: 10 0RF Continued calcium carbonate 500 mg calcium (1,250 mg) tablet,chewable 500 mg PO TID multivitamin with iron Tablet 1 tab PO QDAY herballax PO Rx Instructions: LAXATIVE bupropion HCl 300 mg tablet extended release 24 hr 300 mg PO DAILY ibuprofen [Advil] 200 mg tablet 400 mg PO Q6H PRN (Reason: pain) ondansetron 4 mg tablet,disintegrating 4 mg PO Q8H PRN PRN (Reason: Nausea) Qty: 10 0RF Referrals / Follow Up: Federico Schultz MD [Primary Care Provider, Family Practice] Disposition Disposition (needs filled in before D/C Order can be placed): Home, Self Care
--- NOTE | 2025-03-01 10:22 | PCM.POST.ANE ---
Anesthesia: Postop Eval I Current Vital Signs Temperature: 97.9 F Pulse Rate: 90 Blood Pressure: 133/91 Respiratory Rate: 18 Pulse Ox: 100 Oxygen Delivery Method: Room Air Assessment Airway patent: Yes Spontaneous unlabored respirations: Yes Mental status: Awake and Calm (anxious) nausea: No Vomiting: No Anesthesia Complication: No Fluid Hydration Crystalloid volume administer (ml): 600 Total IV fluid infused: 600 Progress Note Anesthesia document: Postop Eval 1 completed: Yes
[2025-03-01] MEDS: Ketorolac 30 MG/ML Syringe IV (10:56)
--- NOTE | 2025-03-01 12:30 | POSTOPAN2_ITS ---
Anesthesia Postop Eval I Sum Postop Eval Completion status Anesthesia document: Postop Eval 1 completed: Yes Anesthesia Postop Eval I Summary Anesthesia Postop Eval I Summary: Anesthesia Postop Eval I: Assessment Summary Airway patent Yes 03/01/25 10:23 [email or web address] Spontaneous unlabored Yes 03/01/25 10:23 [email or web address] respirations Mental status Awake,Calm - 03/01/25 10:23 [email or web address] anxious nausea No 03/01/25 10:23 [email or web address] Vomiting No 03/01/25 10:23 [email or web address] Anesthesia Postop Eval I: Fluid Summary Crystalloid volume administer 600 03/01/25 10:23 [email or web address] (ml) Colloids volume administered ( ml) Blood Product volume administered (ml) Total IV fluid infused 600 03/01/25 10:23 [email or web address] Anesthesia Postop Eval I: Summary Notes Anesthesia Complication No 03/01/25 10:23 CAN DOFFERMARTI Anesthesia Complication Comment: Post-operative progress note Anesthesia: Postop Eval II Evaluation Mental status: Awake Pain Level: 0 nausea: No Vomiting: No
--- NOTE | 2025-03-01 12:30 | PCM.POSTANE2 ---
Anesthesia Postop Eval I Sum Postop Eval Completion status Anesthesia document: Postop Eval 1 completed: Yes Anesthesia Postop Eval I Summary Anesthesia Postop Eval I Summary: Anesthesia Postop Eval I: Assessment Summary Airway patent Yes 03/01/25 10:23 [email or web address] Spontaneous unlabored Yes 03/01/25 10:23 [email or web address] respirations Mental status Awake,Calm - 03/01/25 10:23 [email or web address] anxious nausea No 03/01/25 10:23 [email or web address] [email or web address] Vomiting No 03/01/25 10:23 [email or web address] Anesthesia Postop Eval I: Fluid Summary Crystalloid volume administer 600 03/01/25 10:23 [email or web address] (ml) Colloids volume administered ( ml) Blood Product volume administered (ml) Total IV fluid infused 600 03/01/25 10:23 [email or web address] Anesthesia Postop Eval I: Summary Notes Anesthesia Complication No 03/01/25 10:23 NETWORK DEVELOPERMARTI Anesthesia Complication Comment: Post-operative progress note Anesthesia: Postop Eval II Evaluation Mental status: Awake Pain Level: 0 nausea: No Vomiting: No
== END 2025-03-01 12:51 | disposition home or self-care (01) ==
LOC: SDC 07:58 → AC 08:01
PROVIDERS: Anesthesiology; PCP Family Medicine; Referring Provider Surgery; Visit Provider Surgery
PROC: 0YQ64ZZ Repair Left Inguinal Region, Percutaneous Endoscopic Approach (ICD-10-PCS; CPT 49320; principal; 2025-03-01 09:15)
DX: R10.32 Left lower quadrant pain (principal); K59.00 Constipation, unspecified; R19.7 Diarrhea, unspecified; R14.0 Abdominal distension (gaseous); F17.210 Nicotine dependence, cigarettes, uncomplicated; K21.9 Gastro-esophageal reflux disease without esophagitis; Z87.19 Personal history of other diseases of the digestive system
CPT/HCPCS: 49320; 00840; 81025; J2405

== ENCOUNTER 2025-03-26 09:29 | Day surgery (SDC) | payer OTHER, SELFPAY ==
--- NOTE | 2025-03-26 09:53 | PCM.PRE.AN2 ---
ASA Classification* ASA Classification ASA Classification: 2 Assessment & Plan Anesthesia* Anesthesia Assessment Anesthesia Assessment: Discussed sedation and/or anesthesia options, risks, benefits, and alternatives with patient/parents/legal guardian/POA. Questions invited. The patient/parents/legal guardian/POA seems to understand and agrees to proceed with anesthesia plan. Reviewed the physical assessment, medical history, allergy history and patient home medications list prior to surgery/procedure/anesthetic and documented any changes. Performed airway and anesthesia risk assessments. Anesthesia Type Anesthesia Type: MAC Anesthesia Focused Assessment* Airway Assessment Mouth opens: >3 cm Mallampati Score: II Labs Anesthesia Preop lab: CBC WBC, (4.4-11.0) 5.7 K/mm3 12/13/24, 15:15 RBC, (4.2-5.4) 4.16 M/mm3 L 12/13/24, 15:15 Hgb, (12.0-15.0) 12.3 g/dL 12/13/24, 15:15 Hct, (37-47) 36.5 % L 12/13/24, 15:15 Plt Count, (150-450) 142 K/mm3 L 12/13/24, 15:15 CHEMISTRY Potassium, (3.3-5.1) 3.5 mmol/L 12/13/24, 15:15 Sodium, (133-145) 138 mmol/L 12/13/24, 15:15 Magnesium, (1.6-2.6) 2.2 mg/dL 08/25/23, 23:58 BUN, (4-19) 12 mg/dL 12/13/24, 15:15 Creatinine, (0.70-1.20) 1.00 mg/dL 12/13/24, 15:15 Glucose, (70-99) 82 mg/dL 12/13/24, 15:15 COAG Urine Test Negative Negative 03/01/25, 08:21 Pre-Assessment Diagnosis/Proposed Procedure Planned Operative Procedure(s): COLONOSCOPY/EGD Anesthesia History Anesthesia History - seismograph recorder: Anesthesia History - seismograph recorder Hx Hospitalization Yes: 02/2024 SUICIDAL/ 03/22/25 09:59 ALCOHOL ABUSE Any Problems With Anesthesia No 03/22/25 09:59 Cholinesterase deficiency No 03/22/25 09:59 You/Your Family Experience No 03/22/25 09:59 fever (hyperthermia) with Relationship Recent Exposure to Contagious No 03/01/25 08:32 Disease Does patient have nerve No 03/22/25 09:59 stimulator Patient instructed to have device shut off --Does patient have Pacemaker or ICD? When Was Last Pacemaker Check QUESTION #4 FULL TEXT: You/Your Family Experience fever (hyperthermia) with Anesthesia Last Oral Intake Last Oral intake: Last Oral Intake NPO since Meds taken in AM with sips of water? Meds patient instructed to take am of surgery PONV PONV - seismograph recorder: PONV - seismograph recorder Female Yes 03/22/25 09:59 HX of Motion Sickness No 03/22/25 09:59 HX of N/V After Surgery No 03/22/25 09:59 Non-Smoker No 03/22/25 09:59 Duration of Surgery greater No 03/22/25 09:59 than 60 minutes Number of Risk Factors 1 03/22/25 09:59 PONV Score Low Risk 03/22/25 09:59 Height & Weight Height & Weight: Anesthesia: Height & Weight Height 5 ft 3 in 03/01/25 08:32 Respiratory Assessment Respiratory Assessment - seismograph recorder: Respiratory Tract Infection Hx - seismograph recorder Hx Respiratory Tract Infection Yes: CHEST COLD/HEAD COLD, 03/22/25 09:59 COUGNO FEVER, DR. 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 SPOKE W/ PT STOP Sleep Apnea STOP Sleep Apnea - seismograph recorder: STOP Sleep Apnea - seismograph recorder Hx Hypertension No 03/22/25 09:59 Hx Sleep Apnea No 03/22/25 09:59 CPAP BIPAP Do you snore loudly (louder No 03/22/25 09:59 than talking or can be heard Do you often feel tired/ No 03/22/25 09:59 fatigued/ sleepy during daytime? Has anyone observed you stop No 03/22/25 09:59 breathing during sleep? STOP Results Negative 03/22/25 09:59 QUESTION #5 FULL TEXT : Do you snore loudly (louder than talking or can be heard through closed doors)? 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 Specify any problems Hx of Preganancy in last 3 No 03/22/25 09:59 Months Nurse Filling Out Transfusion VCHRISTIN 03/22/25 09:59 & Questions: Date: 03/22/25 03/22/25 09:59 Time: 10:03/22/25 09:59 Patient unable to answer at this time (ie. confused, unrespo /Reproduction History /Reproductive History - seismograph recorder: /Reproductive Hx- seismograph recorder Hx Now No 03/22/25 09:59 Gestational Age (in weeks): EDC: Hx Hx Para Hx Section SAB No 03/22/25 09:59 Active Medications Active Medications: Current Medications Generic Name Dose Route Start Last Admin Trade Name Freq PRN Reason Stop Dose Admin Lactated Ringer's 1,000 mls @ 15 mls/hr 03/26/25 09:45 IV .Q48H NAZ PFSH Medical History History of suicidal ideation Alcohol use Migraine headache Smoker History of edema Hernia Brain bleed Home Medications Medication Instructions Recorded Last Taken Type bupropion HCl 300 mg 24 hr tablet, 300 mg PO DAILY 12/13/24 03/01/25 06:00 History extended release ibuprofen 200 mg tablet (Advil) 400 mg PO Q6H PRN pain 12/13/24 Unknown History ondansetron 4 mg disintegrating 4 mg PO Q8H PRN PRN Nausea #10 tabs 12/13/24 Unknown Rx tablet calcium carbonate 500 mg PO TID 02/21/25 Unknown History herballax 1 tab PO PRN 02/21/25 Unknown History multivitamin with iron 1 tab PO QDAY 02/21/25 03/22/25 History tramadol 50 mg tablet 50 mg PO Q6H PRN pain #10 tabs 03/01/25 Unknown Rx Allergy/AdvReac Type Severity Reaction Status Date / Time Iodinated Contrast Media Allergy Shortness Verified 03/22/25 09:53 (CONTRASTS) of breath latex Allergy HIVES Verified 03/22/25 09:53 Latex, Natural Rubber Allergy Rash Verified 03/22/25 09:53 gluten AdvReac Abd Verified 03/22/25 09:53 cramps/diarrhea Family History Mother Alcoholism Anxiety Depression Father Asthma Hypertension Surgical History Hx of surgical procedure H/O inguinal hernia repair Social History Smoking Status: Light Smoker (<10/day) alcohol intake: former year quit: 2023 substance use type: does not use what type of physical activity do you participate in: walking Review of Systems (Anesthesia) ROS Narrative System reviewed and no additional complaints, except as documented.
[2025-03-26 09:54] LABS: Internal QC Validated? YES +Cl - CLEAR BKGD; Pregnancy, Urine Negative Negative; Record Kit Lot#,Urine Preg 0000980607
[2025-03-26 10:05] VITALS: BP 104/79; PULSE 77; RESP 12; TEMP 37; O2SAT 100; BMI 23.8
[2025-03-26] MEDS: Lactated Ringers 1,000 ML 15 ML IV (10:14)
--- NOTE | 2025-03-26 10:45 | COLBX_PTH ---
PATIENT: RIKY LANDEROS LOC: EN U#:[id number] AGE/SX: 34/F ROOM: RE03/26/[address]: Dr. Erica Oliveira MD : 1990 BED: DIS: 03/26/2025 SPEC #: [id number] RECD: 03/26/25 12:25 STATUS: CHARITY RETracy #: [id number] ERWIN: 03/26/25 10:[address]: Erica Oliveira DEPT: SURGICAL PATHOLOGY RECD BY: Buck Dempsey ENTERED: 03/26/25 13:40 SP TYPE: COLON BX OTHR DR: Dr. Federico Schultz MD Tissues: A - Duodenum, NOS B - Gastric mucous membrane C - Esophagus, NOS Procedures: Immunohistochemical Stains Surgery Specimen Level IV HEADER OPERATION: Colonoscopy, EGD, biopsy PRE-OP DIAGNOSIS: Bloating, constipation, abdominal pain TISSUE SUBMITTED: A- Duodenum biopsy, B- Gastric antrum biopsy, C- GE junction biopsy MICROSCOPIC DIAGNOSIS A. Duodenum, biopsy: - Normal villous architecture with no specific pathologic change. - Negative for increased intraepithelial lymphocytes. B. Gastric antrum, biopsy: - Mild chronic inflammation with features of reactive gastropathy. - IHC negative for H. pylori organisms. C. GE junction, biopsy: - Benign squamous mucosa negative for eosinophils. - Columnar mucosa negative for goblet cell metaplasia. MICROSCOPIC DESCRIPTION Slides are reviewed. All matched controls reacted appropriately. These tests were developed and their performance characteristics determined by [facility]. They may not have been cleared or approved by the U.S. Food and Drug Administration. The FDA has determined that such clearance or approval is not necessary. The above immunohistochemical markers and/or special stains have been reviewed by the Pathologist.. GROSS DESCRIPTION A. Received in fixative is one container labeled with the patient's name and designated "Duodenum biopsy." The specimen consists of one irregular fragment of hair tissue that measures 0.4 cm. The specimen is totally submitted in one cassette. B. Received in fixative is one container labeled with the patient's name and designated "Gastric antrum biopsy." The specimen consists of one irregular fragment of hair tissue that measures 0.4 cm. The specimen is totally submitted in one cassette. C. Received in fixative is one container labeled with the patient's name and designated "GE junction biopsy." The specimen consists of one irregular fragment of hair tissue that measures 0.5 cm. The specimen is totally submitted in one cassette. RI 03/26/2025 CPT:[id number]
--- NOTE | 2025-03-26 10:59 | HP.PCM_ITS ---
HPI - General General Date of Service: 03/26/25 HPI Narrative RIKY LANDEROS, is a 34 F who presents for an EGD and colonoscopy due to abdominal pain, constipation and bloating. Patient did have a diagnostic laparoscopy which did not find any hernia in the right or left groin. Patient only took the omeprazole for couple days as she stated it made her stomach feel weird. Patient does have occasional sharp pain in her abdomen and most recently did have this some epigastric pain after eating a gluten-free tuna sandwich but that did resolve. Patient is able to eat more soft foods before she was only on liquids. Patient states that when she does eat more solid foods she seems to have more of an issue with constipation. Patient does take a laxative about every 2 or 3 days if she does not have a bowel movement she does have a squatty potty to help and may have to strain a little bit when having a bowel movement. [facility] Medical History History of suicidal ideation Alcohol use Migraine headache Smoker History of edema Hernia Brain bleed Home Medications Medication Instructions Recorded Last Taken Type bupropion HCl 300 mg 24 hr tablet, 300 mg PO DAILY 03/25/25 History extended release ibuprofen 200 mg tablet (Advil) 400 mg PO Q6H PRN pain 12/13/24 Unknown History ondansetron 4 mg disintegrating 4 mg PO Q8H PRN PRN Na usea #10 tabs 12/13/24 03/21/25 Rx tablet calcium carbonate 500 mg PO TID 02/21/2503/21 History herballax 1 tab PO PRN 02/21/25 Unknow n History multivitamin with iron 1 tab PO QDAY 02/21/2503/22 History tramadol 50 mg tablet 50 mg PO Q6H PRN pain #10 ta bs 03/01/25 Unknown Rx Allergy/AdvReac Type Severity Reaction Status Date / Time Iodinated Contrast Media Allergy Shortness Verified 03/26/25 10:03 (CONTRASTS) of breath latex Allergy HIVES Verified 03/26/25 10:03 Latex, Natural Rubber Allergy Rash Verified 03/26/25 10:03 gluten AdvReac Abd Verified 03/26/25 10:03 cramps/diarrhea Family History Mother Alcoholism Anxiety Depression Father Asthma Hypertension Surgical History Hx of surgical procedure H/O inguinal hernia repair Social History Smoking Status: Light Smoker (<10/day) alcohol intake: former year quit: 2023 substance use type: does not use what type of physical activity do you participate in: walking Past Medical/Surgical History Planned Operation Planned Operative Procedure(s): COLONOSCOPY/EGD Previous Hospitalizations/Surgeries HX Hospitalizations: Yes (02/2024 SUICIDAL/ALCOHOL ABUSE) Any Problems With Anesthesia: No You/Your Family Experience Fever (Hyperthermia) With Anes: No Cholinesterase deficiency: No Cardiovascular Hx Hypertension: No Respiratory Hx Sleep Apnea: No Hx Respiratory Tract Infection/Cold (presently): Yes (CHEST COLD/HEAD COLD, COUGNO FEVER, DR. 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 SPOKE W/ PT) Do You Snore Loudly (louder than talking or can be heard): No Do You Often Feel Tired/ Fatigued/ Sleepy Dring Daytime?: No Has Anyone Observed You Stop Breathing During Sleep?: No Result (for STOP score): Negative Smoking Status: Light Smoker (<10/day) Neurological Hx Seizures: Yes ( A CHILD) Does patient have nerve stimulator: No Reproduction : No Miscellaneous Recent Exposure to Contagious Disease: No Allergies Iodinated Contrast Media (CONTRASTS) Allergy (Verified 03/26/25 10:03) Shortness of breath latex Allergy (Verified 03/26/25 10:03) HIVES Latex, Natural Rubber Allergy (Verified 03/26/25 10:03) Rash gluten Adverse Reaction (Verified 03/26/25 10:03) Abd cramps/diarrhea Discharge Is Pt Admitted From a Senior Care, or a Detention: No After D/C, Where Do you Plan to Go: Return Home Vital Signs Vital Signs Vital Signs: 03/26/25 10:05 03/26/25 10:05 Temperature 98.6 F Temperature Source Temporal Pulse Rate 77 Respiratory Rate 12 Respiratory Pattern Normal Blood Pressure 104/79 Blood Pressure Mean 87 Blood Pressure Source Monitor Blood Pressure Position Semi-Fowlers Blood Pressure Location Left Arm Pulse Ox 100 Oxygen Delivery Method Room Air Weight Weight: 134 lb 7.712 oz Body Mass Index (BMI) 23.8 Physical Exam Const alert, oriented x3 and no apparent distress HEENT normocephalic and head/scalp atraumatic Resp normal respiratory effort Cardio regular rate GI soft to palpation and non-tender; Negative for non-distended Palpation: Negative for guarding Extremity no clubbing, cyanosis or edema Skin no rashes or lesions noted Neuro CN's II-XII intact bilaterally Psych mental status grossly normal Assessment & Plan Assessment/Plan (1) Bloating: (2) Constipation: (3) Abdominal pain: Surgery Risks - Colonoscopy I discussed with the patient the risks of the procedure: Yes Risks Include but are not Limited To: Risks include but are not limited to: Bleeding, perforation requiring further surgery, inability to complete colonoscopy requiring barium enema.
[2025-03-26 12:15] VITALS: BP 104/79; BP 92/60; PULSE 75; RESP 16; TEMP 36.5; O2SAT 98
[2025-03-26 12:19] VITALS: BP 104/79; BP 124/83; PULSE 106; RESP 16; O2SAT 99
--- NOTE | 2025-03-26 12:19 | PCM.POST.ANE ---
Anesthesia: Postop Eval I Current Vital Signs Temperature: 97.7 F Pulse Rate: 74 Blood Pressure: 92/60 Respiratory Rate: 18 Pulse Ox: 99 Oxygen Delivery Method: Room Air Assessment Airway patent: Yes Spontaneous unlabored respirations: Yes Mental status: Asleep nausea: No Vomiting: No Anesthesia Complication: No Fluid Hydration Crystalloid volume administer (ml): 600 Total IV fluid infused: 600 Progress Note Anesthesia document: Postop Eval 1 completed: Yes
[2025-03-26 12:20] VITALS: BP 92/60; PULSE 74; RESP 18; TEMP 36.5; O2SAT 99
--- NOTE | 2025-03-26 12:20 | OP.PROVAT_ITS ---
03/26/2025 Federico Schultz [address] [place] [address] Re : Upper GI endoscopy procedure for Eden Tee Dear Dr. Schultz This procedure was performed on Wednesday, March 26, 2025. My impressions and recommendations are as follows: Impressions : - Z-line irregular. Biopsied. - Erythematous mucosa in the antrum. Biopsied. - No gross lesions in the duodenal bulb, in the first portion of the duodenum and in the second portion of the duodenum. Biopsied. - Small hiatal hernia. Recommendations : - Await pathology results. - Discharge patient to home. - Resume previous diet. - Continue present medications. - Use Pepcid (famotidine) 40 mg PO daily. My findings are described in the full procedure note, which is enclosed. If I can be of further assistance, please feel free to contact me at Doctor phone number(s): , Work: . Sincerely, MD Erica Slater MD 03/26/2025 12:20:07 PM This report has been signed electronically.
--- NOTE | 2025-03-26 12:20 | OP.EGD_ITS ---
Patient Name: Eden Tee Procedure Date: 03/26/2025 11:34 AM Date of : 1990 Age: 34 Procedure: Upper GI endoscopy Indications: Abdominal pain, Abdominal bloating Providers: Erica Oliveira MD Referring MD: Federico Schultz Medicines: Monitored Anesthesia Care Patient Profile: This is a 34 year old female. Complications: No immediate complications. Procedure: Pre-Anesthesia Assessment: - Prior to the procedure, a History and Physical was performed, and patient medications and allergies were reviewed. The patient's tolerance of previous anesthesia was also reviewed. The risks and benefits of the procedure and the sedation options and risks were discussed with the patient. All questions were answered, and informed consent was obtained. Prior Anticoagulants: The patient has taken no anticoagulant or antiplatelet agents. ASA Grade Assessment: Per anesthesia. After reviewing the risks and benefits, the patient was deemed in satisfactory condition to undergo the procedure. After obtaining informed consent, the endoscope was passed under direct vision. Throughout the procedure, the patient's blood pressure, pulse, and oxygen saturations were monitored continuously. The Colonoscope was introduced through the mouth, and advanced to the second part of duodenum. The upper GI endoscopy was accomplished without difficulty. The patient tolerated the procedure well. Scope In: 11:45:42 AM Scope Out: 11:50:43 AM Total Procedure Duration Time 0 hours 5 minutes 1 second Findings: The Z-line was irregular. Biopsies were taken with a cold forceps for histology. Striped mildly erythematous mucosa without bleeding was found in the gastric antrum. Biopsies were taken with a cold forceps for histology. Biopsies were taken with a cold forceps for Helicobacter pylori cultures. No gross lesions were noted in the duodenal bulb, in the first portion of the duodenum and in the second portion of the duodenum. Biopsies for histology were taken with a cold forceps for evaluation of celiac disease. The cardia and gastric fundus were normal on retroflexion. A small hiatal hernia was present. Impression: - Z-line irregular. Biopsied. - Erythematous mucosa in the antrum. Biopsied. - No gross lesions in the duodenal bulb, in the first portion of the duodenum and in the second portion of the duodenum. Biopsied. - Small hiatal hernia. Recommendation: - Await pathology results. - Discharge patient to home. - Resume previous diet. - Continue present medications. - Use Pepcid (famotidine) 40 mg PO daily. Procedure Code(s): --- Professional --- 11743, Esophagogastroduodenoscopy, flexible, transoral; with biopsy, single or multiple Diagnosis Code(s): --- Professional --- K22.89, Other specified disease of esophagus K31.89, Other diseases of stomach and duodenum K44.9, Diaphragmatic hernia without obstruction or gangrene R10.9, Unspecified abdominal pain R14.0, Abdominal distension (gaseous) CPT copyright 2021 [employer]. All rights reserved. The codes documented in this report are preliminary and upon assembler hydraulic backhoe review may be revised to meet current compliance requirements. MD Erica Slater MD 03/26/2025 12:20:07 PM This report has been signed electronically. Number of Addenda: 0 Note Initiated On: 03/26/2025 11:34 AM
[2025-03-26 12:25] VITALS: BP 104/79; BP 127/63; PULSE 90; RESP 16; TEMP 36.6; O2SAT 98
--- NOTE | 2025-03-26 12:25 | OP.PROVAT_ITS ---
03/26/2025 Federico Schultz [address] [place] [address] Re : Colonoscopy procedure for Eden Tee Dear Dr. Schultz This procedure was performed on Wednesday, March 26, 2025. My impressions and recommendations are as follows: Impressions : - The entire examined colon is normal on direct and retroflexion views. - Non-bleeding internal hemorrhoids. - No specimens collected. Recommendations : - Discharge patient to home. - Resume previous diet. - Continue present medications. - Repeat colonoscopy in 10 years for screening purposes. My findings are described in the full procedure note, which is enclosed. If I can be of further assistance, please feel free to contact me at Doctor phone number(s): , Work: . Sincerely, MD Erica Slater MD 03/26/2025 12:24:35 PM This report has been signed electronically.
--- NOTE | 2025-03-26 12:25 | OP.COLON_ITS ---
Patient Name: Eden Tee Procedure Date: 03/26/2025 11:50 AM Date of : 1990 Age: 34 Procedure: Colonoscopy Indications: Abdominal pain Providers: Erica Oliveira MD Referring MD: Federico Schultz Medicines: Monitored Anesthesia Care Patient Profile: This is a 34 year old female. Last Colonoscopy: none. The patient's first colonoscopy is today. Complications: No immediate complications. Procedure: Pre-Anesthesia Assessment: - Prior to the procedure, a History and Physical was performed, and patient medications and allergies were reviewed. The patient's tolerance of previous anesthesia was also reviewed. The risks and benefits of the procedure and the sedation options and risks were discussed with the patient. All questions were answered, and informed consent was obtained. Prior Anticoagulants: The patient has taken no anticoagulant or antiplatelet agents. ASA Grade Assessment: Per anesthesia. After reviewing the risks and benefits, the patient was deemed in satisfactory condition to undergo the procedure. After I obtained informed consent, the scope was passed under direct vision. Throughout the procedure, the patient's blood pressure, pulse, and oxygen saturations were monitored continuously. The Colonoscope was introduced through the anus and advanced to the cecum, identified by the appendiceal orifice, ileocecal valve and palpation. The colonoscopy was somewhat difficult due to a tortuous colon. Successful completion of the procedure was aided by applying abdominal pressure. The patient tolerated the procedure well. The quality of the bowel preparation was good. Scope In: 11:51:45 AM Scope Withdrawal Time 0 hours 10 minutes 49 seconds Scope Out: 12:08:44 PM Total Procedure Duration Time 0 hours 16 minutes 59 seconds Findings: The perianal and digital rectal examinations were normal. The entire examined colon appeared normal on direct and retroflexion views. Non-bleeding internal hemorrhoids were found. The hemorrhoids were Grade I (internal hemorrhoids that do not prolapse). Impression: - The entire examined colon is normal on direct and retroflexion views. - Non-bleeding internal hemorrhoids. - No specimens collected. Recommendation: - Discharge patient to home. - Resume previous diet. - Continue present medications. - Repeat colonoscopy in 10 years for screening purposes. Procedure Code(s): --- Professional --- 95224, Colonoscopy, flexible; diagnostic, including collection of specimen(s) by brushing or washing, when performed (separate procedure) Diagnosis Code(s): --- Professional --- K64.0, First degree hemorrhoids R10.9, Unspecified abdominal pain CPT copyright 2021 [employer]. All rights reserved. The codes documented in this report are preliminary and upon ip/mosaic technician review may be revised to meet current compliance requirements. MD Erica Slater MD 03/26/2025 12:24:35 PM This report has been signed electronically. Number of Addenda: 0 Note Initiated On: 03/26/2025 11:50 AM
--- NOTE | 2025-03-26 12:35 | PCM.POSTANE2 ---
Anesthesia Postop Eval I Sum Postop Eval Completion status Anesthesia document: Postop Eval 1 completed: Yes Anesthesia Postop Eval I Summary Anesthesia Postop Eval I Summary: Anesthesia Postop Eval I: Assessment Summary Airway patent Yes 03/26/25 12:20 [email or web address] Spontaneous unlabored Yes 03/26/25 12:20 [email or web address] respirations Mental status Asleep 03/26/25 12:20 [email or web address] nausea No 03/26/25 12:20 [email or web address] Vomiting No 03/26/25 12:20 [email or web address] Anesthesia Postop Eval I: Fluid Summary Crystalloid volume administer 600 03/26/25 12:20 [email or web address] (ml) Colloids volume administered ( ml) Blood Product volume administered (ml) Total IV fluid infused 600 03/26/25 12:20 [email or web address] Anesthesia Postop Eval I: Summary Notes Anesthesia Complication No 03/26/25 12:20 [email or web address] Anesthesia Complication Comment: Post-operative progress note Anesthesia: Postop Eval II Evaluation Mental status: Awake Pain Level: 0 nausea: No Vomiting: No
[2025-03-26 12:51] VITALS: BP 104/79
== END 2025-03-26 13:38 | disposition home or self-care (01) ==
LOC: EN 09:32 → AC 09:34
PROVIDERS: Anesthesiology; PCP Family Medicine; Referring Provider Family Medicine; Visit Provider Surgery
DX: R10.9 Unspecified abdominal pain (principal); K44.9 Diaphragmatic hernia without obstruction or gangrene; K22.89 Other specified disease of esophagus; R14.0 Abdominal distension (gaseous); K64.0 First degree hemorrhoids; K59.00 Constipation, unspecified; F17.200 Nicotine dependence, unspecified, uncomplicated; K31.89 Other diseases of stomach and duodenum; K29.50 Unspecified chronic gastritis without bleeding
CPT/HCPCS: 43239; 45378; 81025; 88305; 88342; J2405